=== PATIENT | female | born 1945 | race Caucasian/White ===

== ENCOUNTER 2017-11-16 08:38 | Day surgery (SDC) | payer MEDICARE, SELFPAY ==
--- NOTE | 2017-11-16 09:00 | NURSING ---
PT. BROUGHT INTO ROOM. SHORT STAY ADMISSION DONE. CONSENT FORM SIGNED. LIDOCAINE JELLY TO R. NARE. MANOMETRY CATHETER LUBRICATED WITH [place] JELLY AND PLACED INTO R. NARE TO [address]. TAPED WITH BLUE TAPE ONTO PT'S NOSE. PROCEDURE COMPLETED. CATHETER REMOVED. PT. TOLERATED PROCEDURE WELL. RN WALKED PT. OUT TO WAITING ROOM AND PT. WAS DISCHARGED HOME.
[2017-11-16 09:02] VITALS: BP 170/94; PULSE 83; RESP 18; O2SAT 93; BMI 29.7
== END 2017-11-16 14:15 | disposition home or self-care (01) ==
LOC: EN 08:39 → AC 08:41
PROVIDERS: Visit Provider Surgery
DX: K21.9 Gastro-esophageal reflux disease without esophagitis (principal)
CPT/HCPCS: 91010

== ENCOUNTER → 2018-06-19 12:20 | Outpatient (CLI) | payer MEDICARE, SELFPAY ==
--- NOTE | 2018-06-19 12:23 | US_ITS ---
STUDY: RENAL ULTRASOUND - COMPLETE REASON FOR EXAM: Female, 72 years old. Renal cancer TECHNIQUE: Ultrasound evaluation of the kidneys was performed with real-time and static raphael-scale imaging. COMPARISON: CT abdomen and pelvis dated 01/10/2017 FINDINGS: RIGHT KIDNEY: Normal location of the right kidney, which is normal in size. The right kidney measures 11 cm. There is a normal cortex of the right kidney. The renal cortex measures 1.2 cm. There are at least 2 right-sided renal cysts, largest measuring 1 x 0.8 x 1 cm. There appears to be a solid mass like lesion in the inferior pole the right kidney measuring 1.9 x 1.5 x 1.4 cm. There are no right renal calculi. There is no right hydronephrosis. DISTAL RIGHT URETER: There is non-visualization of the distal right ureter. There is no demonstrated right ureterovesical junction calculus. There is no demonstrated right ureteral jet. LEFT KIDNEY: Normal location of the left kidney, which is normal in size. The left kidney measures 11.2 cm. There is a normal cortex of the left kidney. The renal cortex measures 1.3 cm. There is no left renal mass or cyst. There are no left renal calculi. There is no left hydronephrosis. DISTAL LEFT URETER: There is non-visualization of the distal left ureter. There is no demonstrated left ureterovesical junction calculus. There is no demonstrated left ureteral jet. BLADDER: Not visualized US/Kidney and Bladder IMPRESSION: Again noted is a solid masslike lesion in the inferior aspect of the right kidney which appears grossly unchanged as compared to CT from 2017. Underlying malignancy cannot be excluded. Continued follow-up is recommended. Otherwise, stable right-sided renal cysts. Left kidney is within normal limits Electronically Signed: Sabino Hernandez DO at 8:47 EDT Tel , Service support ,
== END ==
PROVIDERS: Visit Provider Urology
DX: C64.9 Malignant neoplasm of unspecified kidney, except renal pelvis (principal)
CPT/HCPCS: 76770

== ENCOUNTER → 2020-07-06 12:49 | Outpatient (CLI) | payer MEDICARE, SELFPAY ==
[2020-07-01 10:59] VITALS: BMI 29.7
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
== END ==
PROVIDERS: Referring Provider Anesthesiology Pain Medicine; Visit Provider Anesthesiology Pain Medicine
DX: M25.559 Pain in unspecified hip (principal)
CPT/HCPCS: 73521

== ENCOUNTER 2020-11-25 14:17 | Outpatient (RCR) | payer MEDICARE, SELFPAY ==
[2020-07-01 10:59] VITALS: BMI 29.7
== END 2020-11-25 23:59 ==
LOC: IMMUN 14:17
PROVIDERS: Visit Provider Family Medicine
DX: Z23 Encounter for immunization (principal)
CPT/HCPCS: 0011A; 0012A; 91301

== ENCOUNTER 2021-01-13 22:33 | Emergency (ER) | payer MEDICARE, SELFPAY ==
[2020-07-01 10:59] VITALS: BMI 29.7
[2021-01-13 22:34] VITALS: BP 157/83; PULSE 82; RESP 17; TEMP 36.4; O2SAT 99; BMI 29.7
[2021-01-13 22:40] VITALS: BMI 29.7
[2021-01-13 22:45] LABS: Bedside Glucose 125 mg/dL (70-110)
--- NOTE | 2021-01-13 22:46 | ED.RN ---
When doctor in room, patient now states it is more of a pain in her fingers, hand and arm and states the face is numb. Then, states she has abdominal pain still but it is better than was when had the diverticulitis last week.
--- NOTE | 2021-01-13 22:51 | EKG12_ITS ---
Test Reason : NEURO Blood Pressure : / mmHG Vent. Rate : 066 BPM Atrial Rate : 066 BPM P-R Int : 160 ms QRS Dur : 100 ms QT Int : 406 ms P-R-T Axes : 066 -11 109 degrees QTc Int : 425 ms Normal sinus rhythm ST & T wave abnormality, consider lateral ischemia Abnormal ECG Confirmed by GWEN LAWLER, DAVID ([id number]), general expeditor MULU WILSON ([id number]) on 01/15/2021 11:52:17 AM Referred By: KATE Confirmed By:DAVID HIDALGO MD
--- NOTE | 2021-01-13 22:52 | CT_ITS ---
STUDY: CTA HEAD AND NECK WITH CONTRAST REASON FOR EXAM: Female, 75 years old. left arm tingling RADIATION DOSAGE (If Supplied By Facility): CTDIvol = ( 27.47 ) mGy, DLP = ( 1324.91 ) mGycm TECHNIQUE: CT angiography was performed with a multi-detector CT scanner. Data acquisition was obtained from the skull base through the vertex following intravenous administration of IV 100mL Isovue-370. MIP images were reconstructed from the axial data set. Post-processing of the angiographic images was performed, with multiplanar reformation and 3D reconstruction. Individualized dose optimization techniques were used for this CT. COMPARISON: No relevant priors. FINDINGS: Normal bilateral petrous carotid arteries. Normal right cavernous carotid artery with a normal supraclinoid bifurcation. Normal left cavernous carotid artery with a normal supraclinoid bifurcation. Normal right A1 segments of the anterior cerebral artery. Normal left A1 segments of the anterior cerebral artery. Normal intact anterior communicating artery (ACOM). Normal bilateral A2 segments of the anterior cerebral arteries. Normal right M1 and M2 segments of the middle cerebral arteries, with a normal M1 bifurcation. Normal left M1 and M2 segments of the middle cerebral arteries, with a normal M1 bifurcation. Normal right posterior communicating artery (PCOM). Normal left posterior communicating artery (PCOM). Normal bilateral vertebral arteries. Normal basilar artery with a normal basilar bifurcation. The visualized bilateral superior cerebellar (SCA) arteries are normal. Normal right P1, P2 and visualized P3 segments of the posterior cerebral artery. origin of the left posterior cerebral artery, which is a normal variant. There is no demonstrated aneurysm of the [place]. There is no demonstrated abnormality of the visualized brain. AORTIC ARCH: Normal visualized aortic arch. Normal origins of the brachiocephalic, left common carotid, and left subclavian arteries. RIGHT CAROTID ARTERIES: Normal right common carotid artery (CCA). Normal right common carotid bulb. Normal origin of the right internal carotid (ICA) artery without a hemodynamically significant stenosis. Normal visualized cervical portion of the right internal carotid artery. Normal origin of the right external carotid artery (ECA). LEFT CAROTID ARTERIES: Normal left common carotid artery (CCA). Normal left common carotid bulb. Normal origin of the left internal carotid (ICA) artery without a hemodynamically significant stenosis. Normal visualized cervical portion of the left internal carotid artery. Normal origin of the left external carotid artery (ECA). VERTEBRAL ARTERIES: Normal bilateral vertebral arteries. Degenerative changes of the lower cervical spine. CT/CTA Head AND Neck W/ Contrast IMPRESSION: Normal CTA Head and neck with contrast. Electronically Signed: Jacoby Ventura MD at 0:08 EDT , Service support ,
[2021-01-13 22:59] LABS: Absolute Lymphocyte Count 3.27 X10^3/uL (0.83-4.51); Absolute Neutrophil Count 3.2 X10^3/uL (2.0-7.7); Basophil# 0.07 X10^3/uL; Basophil% 0.9 % (0-1); Eosinophil# 0.28 X10^3/uL; Eosinophils% 3.7 % (0-5); Hematocrit 39.9 % (37-47); Hemoglobin 13.2 g/dL (12.0-15.0); Lymphocyte # 3.27 X10^3/ul (0.83-4.51); Lymphocyte % 43.2 % (19-41); Mean Corp Hgb Conc 33.1 g/dL (32-36); Mean Corpuscular Hgb 32.1 pg (27.0-32.0); Mean Corpuscular Volume 97.1 fL (81-99); Mean Platelet Vol. 9.3 fl (6.2-12.0); Monocyte# 0.78 X10^3/uL; Monocyte% 10.3 % (0-10); NRBC Flagged by Analyzer 0 % (0-5); Neutrophil # 3.16 X10^3/uL (2.7-7.7); Neutrophil % 41.8 % (47-70); Platelet Count 303 K/mm3 (150-450); RBC Distribution Width CV 12.9 % (11.6-14.6); RBC Distribution Width SD 46.2 fl (35.1-43.9); Red Blood Count 4.11 M/mm3 (4.2-5.4); White Blood Count 7.6 K/mm3 (4.4-11.0)
[2021-01-13 23:16] LABS: Anion Gap 2 (5-15); BUN 13 mg/dL (7-18); BUN/Creat Ratio 20.4 RATIO (10-20); Calcium,Total 9.8 mg/dL (8.5-10.1); Chloride 107 mmol/L (98-107); Creatinine, Serum 0.64 mg/dL (0.55-1.02); EST Glomerular Filtration Rate 96 mL/min (>60); Est Glom Filt Rate - Afr Amer 117 mL/min (>60); Estimated Creatinine Clearance 37.85 ml/min; Glucose 124 mg/dL (74-106); Potassium 3.3 mmol/L (3.5-5.1); Sodium Level 139 mmol/L (136-145)
[2021-01-13 23:17] VITALS: BP 133/68; PULSE 68; RESP 19; O2SAT 99
--- NOTE | 2021-01-13 23:19 | RAD_ITS ---
STUDY: X-RAY CHEST REASON FOR EXAM: Female, 75 years old. Shortness of breath. TECHNIQUE: AP portable chest. COMPARISON: None. FINDINGS: The lungs are clear and expanded. There is no demonstrated pleural abnormality. There is mild cardiac enlargement. Normal mediastinum and arnaldo. Normal visualized pulmonary arteries. Normal visualized aortic arch and descending thoracic aorta. Normal visualized thoracic spine. Normal visualized ribs, clavicles, and shoulders. There is no demonstrated abnormality of the visualized soft tissue structures of the upper abdomen. RAD/Chest 1 View (Portable) IMPRESSION: Mild cardiomegaly. Electronically Signed: Jacoby Ventura MD at 23:47 EDT , Service support ,
--- NOTE | 2021-01-13 23:41 | ED.VISSUMM ---
- ER Visit Summary Date of Service: 01/13/21 Chief Complaint: Left hand pain History of Present Illness: The patient is a 75 F presenting with left hand pain. Patient states her left middle finger start started to feel like it was cramping and painful. This started 3 hours prior to arrival. She states the pain then traveled to her the rest of her left arm. She denies chest pain or shortness of breath. Denies numbness or tingling. Denies weakness. Denies headache. Denies vision changes. She states she received her second Covid vaccine on December 23 in that arm. She recently finished a course of antibiotics for diverticulitis. Her abdominal pain has improved. She denies fever. Denies other complaints. Physical Examination: Vitals are stable. Patient is afebrile. Alert no acute distress. HEENT exam is unremarkable. Neck is supple. Lungs are clear and equal bilaterally. Heart is regular rate and rhythm. Abdomen is soft nontender nondistended. No guarding or rebound Extremities are unremarkable. Skin is warm and dry. No focal neurologic deficit. NIH 0 Remainder of exam is unremarkable. Emergency Department Course and Treatment: EKG is sinus rhythm rate of 66 with T wave inversion in lead I and aVL, similar to previous. CBC, chemistries unremarkable. Troponin is negative. Delta troponin is negative. Chest x-ray read by myself and radiology shows mild cardiomegaly. CT head shows normal noncontrast CT of the head. Normal CTA Head and neck with contrast. On reevaluation patient is feeling improved, she has mild pain in her left hand. Her arm pain has resolved. Left hand x-ray read by myself and radiology shows degenerative changes base of the first metacarpal, no fracture identified. She is able to ambulate with a steady gait. She is feeling improved on reevaluation. Advised to follow up with primary care physician. Advised return to the ED for worsening complaints. Disposition: Discharged home Impression: Left hand cramping This note was generated with [employer] dictation software. It may contain incorrect words, spelling, and punctuation that were not noted in review of the chart prior to signing ED Disposition - Plan for ED Patient: Disposition: Home or Assisted Living Instructions: What Is Arthritis?, ED Muscle Spasm Referrals: Josse Ngo Jr., MD [Primary Care Provider] -
[2021-01-13 23:49] VITALS: BP 148/67; PULSE 67; RESP 15; O2SAT 98
[2021-01-14 00:38] VITALS: BP 133/67; PULSE 76; RESP 16; O2SAT 97
[2021-01-14 01:32] VITALS: BP 144/69; PULSE 66; RESP 15; O2SAT 98
--- NOTE | 2021-01-14 02:13 | RAD_ITS ---
STUDY: X-RAY - LEFT HAND REASON FOR EXAM: Female, 75 years old. pain TECHNIQUE: 3 view(s) of the hand. COMPARISON: August 10, 2013. FINDINGS: Normal radiocarpal articulation. Normal distal radioulnar joint. Normal visualized carpal bones. Normal carpal articulations Degenerative changes base of the first metacarpal. Normal second through fifth carpometacarpal joints. Normal metacarpi. Normal metacarpophalangeal joint of the thumb. Normal interphalangeal joint of the thumb. Normal proximal and distal phalanges of the thumb. Normal metacarpophalangeal joints of the second through fifth fingers. Normal proximal and distal interphalangeal joints of the second through fifth fingers. Normal phalanges of the second through fifth fingers. The soft tissue structures are unremarkable. RAD/Hand Min 3 Views IMPRESSION: Degenerative changes base of the first metacarpal, no fracture identified. Electronically Signed: Jacoby Ventura MD at 3:44 EDT , Service support ,
[2021-01-14 02:54] VITALS: BP 136/72; PULSE 78; RESP 16; O2SAT 95
--- NOTE | 2021-01-14 03:45 | ED.DEP ---
ED Disposition - Plan for ED Patient: Instructions: What Is Arthritis?, ED Muscle Spasm Referrals: Josse Ngo Jr., MD [Primary Care Provider] -
[2021-01-14 03:57] VITALS: BP 135/81; PULSE 68; RESP 16; O2SAT 97
== END 2021-01-14 04:04 | disposition home or self-care (01) ==
LOC: ED 23:45
PROVIDERS: Emergency Provider Emergency Medicine
DX: R25.2 Cramp and spasm (principal); I51.7 Cardiomegaly; M79.602 Pain in left arm
CPT/HCPCS: 70496; 70498; 71045; 73130; 80048; 82962; 84484; 85025; 93005; 99285; Q9967; A4216

== ENCOUNTER 2021-09-16 13:51 | Emergency (ER) | payer MEDICARE, SELFPAY ==
[2021-09-16 13:52] VITALS: BP 171/78; PULSE 99; RESP 18; TEMP 36; O2SAT 98; BMI 28.3
--- NOTE | 2021-09-16 15:03 | ED.VIS.FEGU ---
HPI HPI - Female History of Present Illness Chief Complaint: Female C/O Narrative Narrative: Patient has remote history of rectocele and rectal prolapse repair along with pelvic floor prolapse repair. She states this was done at the [facility] in 1999. Over the last few days, she noticed a lump near her anus and became concerned that she had prolapse again. She had to have revision surgery after her initial surgery, and is concerned that things are moving around and that this lump has something to do with recurrence of her prolapse. She denies any fevers or chills. No nausea or vomiting. No bleeding rectally. She denies any diarrhea or problems with bowel movements. She is just concerned about this area where she felt a hard lump. Of note, she does state that she does have history of hemorrhoids, and said that previously some internal hemorrhoids may have prolapsed but her surgeon thinks that 20 years ago. [facility] Medical History Anxiety Arthritis Dilation of esophagus Dysphagia GERD (gastroesophageal reflux disease) History of colon polyps Irritable bowel syndrome with constipation s/p PH probe insertion Uterine prolapse Home Medications esomeprazole magnesium 20 mg capsule,delayed release 20 mg PO DAILY 07/01/20 [History Last Taken Unknown] aspirin 1 tablet PO DAILY PRN 01/13/21 [History Last Taken Unknown] hydrocortisone [Anusol-HC] 1 applic PA DAILY PRN #30 g 09/16/21 [Rx Last Taken Unknown] Allergy/AdvReac Type Severity Reaction Status Date / Time Penicillins Allergy Hives Verified 09/16/21 13:54 codeine AdvReac Other Verified 09/16/21 13:54 Family History Mother Diabetes Brother Heart disease Hypertension Sister CAD (coronary artery disease) Diabetes Surgical History History of appendectomy History of bladder suspension procedure History of esophagogastroduodenoscopy (~10/17/17) History of hysterectomy History of nasal surgery History of wisdom tooth extraction Social History Smoking Status: Never smoker alcohol intake: current alcohol intake frequency: a few times a month ROS ROS ED ROS Narrative Constitutional: No fever, no chills. HEENT: No sore throat. No neck pain. No loss of vision. No rhinorrhea. Cardiovascular: No chest pain. No palpitations. No pedal edema. Respiratory: No cough, no shortness of breath. Abdominal: No abdominal pain. No nausea. No vomiting. Genitourinary: No dysuria. No hematuria. Hard lump near rectum. Musculoskeletal: No myalgias. No arthralgias. Neurologic: No headaches. No dizziness. No lightheadedness. Skin: No rash. No change in color. Psychiatric: No depression. No anxiety. EXAM Physical Exam Narrative Exam Narrative: Afebrile. Vital signs noted. HEENT: Normocephalic. Atraumatic. PERRL, EOMI. Neck soft and supple. No point tenderness or step off. Cardiovascular: Regular rate and rhythm. No murmurs, rubs, or gallops appreciated. Respiratory: No tachypnea. Lungs clear to auscultation bilaterally. Gastrointestinal: Abdomen soft, nontender, with normoactive bowel sounds. No rebound or guarding. Chaperoned rectal examination reveals external hemorrhoid without active bleeding. Is partially thrombosed, but not fully. No erythema. It is located in the 6 o'clock position more towards the perineum. No fluctuance of perineum. Neurological: Awake. Alert. Nonfocal, nonlateralizing. Skin: No rash. Normal color. No pallor. Musculoskeletal: No pedal edema. Full range of motion extremities. Const Vital Signs: 09/16/21 13:52 Temperature 96.8 F L Temperature Source Temporal Pulse Rate 99 Respiratory Rate 18 Blood Pressure 171/78 H Blood Pressure Mean 109 Pulse Ox 98 Oxygen Delivery Method Room Air MDM MDM MDM Narrative Medical decision making narrative: Patient states that she has not really having pain when she sits. She denies any fevers or chills. She was reassured. I do think this is a partially thrombosed external hemorrhoid. She will be given a prescription for Anusol HC ointment and she was referred to the general surgeon on-call, Dr. Truong. I feel she can be discharged safely home with follow-up. Return instructions were reviewed. Disposition is discharged home in stable condition. Discharge Plan Triage Chief Complaint: Female C/O ED Provider: Gunner Lovell Dx/Rx/DC Orders Clinical Impression: External hemorrhoid Instructions: Treating Hemorrhoids: Self-Care, ED Hemorrhoids Prescriptions: New hydrocortisone [Anusol-HC] 2.5 % cream with perineal applicator 1 applic PA DAILY PRN (Reason: hemorrhoids) Qty: 30 RF: 0 No Action esomeprazole magnesium [Nexium] 20 mg capsule,delayed release(DR/EC) 20 mg PO DAILY RF: 0 aspirin 81 MG tablet,chewable 1 tablet PO DAILY PRN RF: 0 Primary Care Provider: Care Physician,No Primary Referrals: Care Physician,No Primary [Primary Care Provider] -
--- NOTE | 2021-09-16 15:04 | ED.RN ---
pt here for concern of rectocele. upon exam with dr. gallagher, only external hemorrhoids.
== END 2021-09-16 15:28 | disposition home or self-care (01) ==
LOC: ED 14:51
PROVIDERS: Emergency Provider Emergency Medicine
DX: K64.5 Perianal venous thrombosis (principal); F41.9 Anxiety disorder, unspecified; K21.9 Gastro-esophageal reflux disease without esophagitis; K58.9 Irritable bowel syndrome, unspecified; M19.90 Unspecified osteoarthritis, unspecified site; Z87.19 Personal history of other diseases of the digestive system
CPT/HCPCS: 99282

== ENCOUNTER 2021-10-08 21:33 | Emergency (ER) | payer MEDICARE, SELFPAY ==
[2021-10-08 21:34] VITALS: BP 157/110; PULSE 86; RESP 15; TEMP 36.4; O2SAT 99; BMI 29.6
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
[2021-10-08 22:43] VITALS: BP 155/74; PULSE 77; RESP 17; O2SAT 97
== END 2021-10-08 22:49 | disposition home or self-care (01) ==
PROVIDERS: Emergency Provider Emergency Medicine; Visit Provider Emergency Medicine
DX: Z71.1 Person with feared health complaint in whom no diagnosis is made (principal); M19.90 Unspecified osteoarthritis, unspecified site; K21.9 Gastro-esophageal reflux disease without esophagitis; K58.1 Irritable bowel syndrome with constipation; Z86.010 Personal history of colon polyps; Z79.82 Long term (current) use of aspirin
CPT/HCPCS: 99282

== ENCOUNTER 2023-02-09 12:22 | Emergency (ER) | payer MEDICARE, SELFPAY ==
[2023-02-09 12:24] VITALS: BP 136/74; PULSE 77; RESP 18; TEMP 36.1; O2SAT 93; BMI 31.7
--- NOTE | 2023-02-09 12:49 | RAD_ITS ---
STUDY: X-RAY - RIGHT ELBOW REASON FOR EXAM: Female, 77 years old. Injury/Pain TECHNIQUE: 3 view(s) of the elbow. COMPARISON: None. FINDINGS: Mildly depressed fracture of the radial head. Normal radiocapitellar and ulnotrochlear articulations. Joint effusion. RAD/Elbow min 3 Views IMPRESSION: Joint effusion. Mildly depressed fracture of the radial head. Electronically Signed: Wilbert Dalal MD at 13:47 EDT ,
--- NOTE | 2023-02-09 12:49 | RAD_ITS ---
STUDY: X-RAY - PELVIS AND RIGHT HIP REASON FOR EXAM: Female, 77 years old. Right hip pain following a fall. TECHNIQUE: 3 views of the pelvis and hip. COMPARISON: Comparison is made with prior examination July 06, 2020. FINDINGS: There is a non-specific bowel gas pattern. There are atherosclerotic vascular calcifications of the pelvic arteries. Normal bilateral iliac wings, sacroiliac joints and visualized sacrum. Normal bilateral superior and inferior pubic rami. Normal pubic symphysis. Normal bilateral ischial tuberosities. Widening of the right femoral head suggestive of a femoral acetabular impingement. Degenerative spur formation along the femoral head. Normal acetabulum. There is moderate articular joint space narrowing of the hip. RAD/HIP, UNI W/ Pelvis 2-3 Views IMPRESSION: Degenerative changes. No fracture is seen. Electronically Signed: Wilbert Dalal MD at 13:48 EDT ,
--- NOTE | 2023-02-09 13:24 | ED.VIS.FALL ---
HPI HPI - Fall History of Present Illness Chief Complaint: Fall Informant: patient Occured/Mechanism Occurred: Today Mechanism/Context: Yes same level fall Pain/Injury Pain Location: pelvis, upper extremity (Right elbow) and lower extremity (Right hip) Quality of Pain: Aching Worsened by: Movement Relieved by: Rest Associated Symptoms Associated Symptoms: Negative for Parasthesias, Weakness, Loss of function, Inability to ambulate, Loss of consciousness or Amnesia Narrative Narrative: Patient presents after a fall that occurred today. Patient states she was walking out of her screened in porch when she fell and landed on her right side. Patient hit her elbow and right hip. Patient denies any head injury or loss of consciousness. Patient describes her pain as aching. Patient states her pain is worse in her right elbow. Patient states it is worse with movement. Patient states it is better with rest. Patient denies any paresthesias or weakness. Patient denies any other injuries. Patient states she was able to ambulate after the fall. [facility] Medical History Anxiety Arthritis Dilation of esophagus Dysphagia GERD (gastroesophageal reflux disease) Hemorrhoids History of colon polyps Irritable bowel syndrome with constipation s/p PH probe insertion Uterine prolapse Home Medications esomeprazole magnesium 20 mg capsule,delayed release (Nexium) 20 mg PO DAILY 07/01/20 [History Last Taken Unknown] aspirin 81 mg chewable tablet 1 tablet PO DAILY PRN Check with primary doctor 01/13/21 [History Last Taken Unknown] hydrocortisone 2.5 % topical cream with perineal applicator (Anusol-HC) 1 applic MT DAILY PRN hemorrhoids #30 grams 09/16/21 [Rx Last Taken Unknown] hydrocodone-acetaminophen 5-325mg 5mg-325mg 1 tab PO Q6H PRN PRN Pain 3 days #10 TABLETS 02/09/23 [Rx Last Taken Unknown] Allergy/AdvReac Type Severity Reaction Status Date / Time Penicillins Allergy Hives Verified 10/08/21 21:34 codeine AdvReac Other Verified 10/08/21 21:34 Family History Mother Diabetes Brother Heart disease Hypertension Sister CAD (coronary artery disease) Diabetes Surgical History History of appendectomy History of bladder suspension procedure History of esophagogastroduodenoscopy (~10/17/17) History of hysterectomy History of nasal surgery History of wisdom tooth extraction Social History Smoking Status: Never smoker alcohol intake: current alcohol intake frequency: a few times a month ROS ROS ED Constitutional Constitutional ED: Denies chills or fever(s) Eyes Eyes: Denies blurry vision or change in vision ENT ENT ED: Denies rhinorrhea or sore throat Cardiovascular Cardiovascular: Denies chest pain or palpitations Respiratory/Chest Respiratory/Chest: Denies cough or dyspnea Gastrointestinal Gastrointestinal: Denies nausea or vomiting Genitourinary Genitourinary ED: Denies dysuria or hematuria Musculoskeletal Musculoskeletal: Reports back pain; Denies neck pain Integumentary Denies abscess or rash Neurologic Neurologic: Reports headache(s); Denies weakness Allergic/Immunologic Allergic/Immunologic ED: Denies mouth swelling or urticaria EXAM Physical Exam Const Vital Signs: 02/09/23 12:24 Temperature 97.0 F L Temperature Source Temporal Pulse Rate 77 Respiratory Rate 18 Blood Pressure 136/74 H Blood Pressure Mean 94 Pulse Ox 93 Oxygen Delivery Method Room Air Positive well nourished and well developed General Appearance ED: well developed and NAD HEENT Reports normocephalic atraumatic Neck full ROM and supple Extremity Extremity Narrative: There is tenderness over the posterior aspect of the right elbow. There is a very superficial abrasion over the olecranon process. There is no obvious deformity noted. Range of motion was limited in all motions of the right elbow secondary to pain. Radial pulses are equal bilaterally. Sensation was intact to light touch in the radial, median, and ulnar areas. Strength is 5/5 in the radial, median, and ulnar areas. There is also mild tenderness over the right hip over the anterior superior iliac spine. There is no obvious deformity noted. There is good range of motion of the right hip. Pedal pulses are equal bilaterally. Sensation was intact to light touch bilaterally in the lower extremities. Strength is 5/5 in the lower extremities. Neuro oriented x3, CN's II-XII intact bilaterally, moves all extremities, no focal motor deficits and no sensory deficits noted [place] Coma Scale: document GCS findings Spontaneous Obeys Commands Oriented 15 Sensorium / Orientation: alert Motor Exam: strength 5/5 throughout Psych mental status grossly normal MDM MDM MDM Narrative Medical decision making narrative: Differential diagnosis includes elbow fracture, dislocation, contusion, right hip contusion, pelvic fracture, and right hip fracture. X-rays of the right elbow will be obtained to assess for fracture. X-rays of the right hip and pelvis will be obtained to assess for fracture. Radiography Diagnostic Testing: Clinical Impression(s) from Imaging Studies Elbow X-Ray 02/09/23 12:49 IMPRESSION: Joint effusion. Mildly depressed fracture of the radial head. Electronically Signed: Wilbert Dalal MD at 13:47 EDT , Hip/Pelvis X-Ray 02/09/23 12:49 IMPRESSION: Degenerative changes. No fracture is seen. Electronically Signed: Wilbert Dalal MD at 13:48 EDT , X-rays of the right elbow were obtained. There are 3 views. On my independent interpretation, there is a fracture of the radial head. There is a joint effusion noted. Radiologist also interpreted the x-rays and agrees. X-rays of the right hip were obtained. There are 3 views. On my independent interpretation, there are degenerative changes. There is no acute fracture noted. Radiologist also interpreted the x-rays and agrees. Treatment and Re-Evaluation Narrative: Given herPatient was advised of her findings. Patient was given a sling. Patient was instructed to ice and elevate the right elbow. Scription for a short course of [place]. Patient was instructed to follow-up with her primary care physician in 5 to 7 days. Patient understood and was agreeable with the plan. All questions were answered. Discharge Plan Triage Chief Complaint: Fall Other Complaint: Upper Extremity Injury ED Provider: Austin Mckeon Dx/Rx/DC Orders Clinical Impression: Fracture of head of right radius, Contusion of right hip Instructions: ED Elbow Fracture, ED Hip Contusion Prescriptions: New hydrocodone-acetaminophen [hydrocodone-acetaminophen] 5-325 mg tablet 1 tab PO Q6H PRN PRN (Reason: Pain) 3 Days Qty: 10 0RF No Action esomeprazole magnesium [Nexium] 20 mg capsule,delayed release(DR/EC) 20 mg PO DAILY aspirin 81 MG tablet,chewable 1 tablet PO DAILY PRN hydrocortisone [Anusol-HC] 2.5 % cream with perineal applicator 1 applic MT DAILY PRN (Reason: hemorrhoids) Qty: 30 0RF Primary Care Provider: Vinicius Harris Referrals: Vinicius Harris MD [Primary Care Provider] - 5-7 Days Juno Montano MD [Med Staff - Active Staff] - 5-7 Days Disposition Disposition: Home, Self Care
== END 2023-02-09 15:20 | disposition home or self-care (01) ==
PROVIDERS: Emergency Provider Emergency Medicine; PCP Family Medicine; Visit Provider Emergency Medicine
DX: S52.301A Unspecified fracture of shaft of right radius, initial encounter for closed fracture (principal); W18.30XA Fall on same level, unspecified, initial encounter; S70.01XA Contusion of right hip, initial encounter
CPT/HCPCS: 73080; 73502; 99282

== ENCOUNTER 2024-07-11 11:46 | Observation (INO) | payer MEDICARE, SELFPAY ==
[2024-07-11 11:47] VITALS: BP 134/70; PULSE 75; RESP 20; TEMP 36.6; O2SAT 100
--- NOTE | 2024-07-11 12:43 | RAD_ITS ---
STUDY: X-RAY CHEST REASON FOR EXAM: Female, 79 years old. Lightheaded . Headaches. TECHNIQUE: PA and lateral views of the chest. COMPARISON: Comparison is made with prior study January 13, 2021. FINDINGS: EKG electrodes are seen. Hyperinflation. Stable mild increased markings at the left lung base suggestive of a scarring. There is no demonstrated pleural abnormality. There is mild cardiac enlargement. Normal mediastinum and arnaldo. Normal visualized pulmonary arteries. There is atherosclerotic tortuosity of the aortic arch and descending thoracic aorta. There are degenerative changes of the visualized thoracic spine. Normal visualized ribs, clavicles, and shoulders. There is no demonstrated abnormality of the visualized soft tissue structures of the upper abdomen. RAD/Chest PA and Lateral IMPRESSION: Findings suggestive of a stable mild scarring at the left lung base. Cardiomegaly. Electronically Signed: Wilbert Dalal MD at 13:57 EDT ,
--- NOTE | 2024-07-11 12:43 | CT_ITS ---
STUDY: CT BRAIN WITHOUT CONTRAST REASON FOR EXAM: Female, 79 years old. Lightheaded, headache RADIATION DOSAGE (If Supplied By Facility): CTDIvol = ( 44.99 ) mGy, DLP = ( 745.49 ) mGycm TECHNIQUE: Transaxial CT imaging of the brain was performed without administration of intravenous contrast material. Individualized dose optimization techniques were used for this CT. COMPARISON: No relevant priors. FINDINGS: Normal soft tissue structures. Normal calvarium. There is mild cerebral atrophy with widening of the extra-axial spaces and ventricular dilatation. Normal white matter tracts of the cerebral hemispheres. Normal basal ganglia and thalami. Normal brainstem. There is mild cerebellar atrophy. There is no intracranial hemorrhage. There are no findings of an acute ischemic infarction. Atherosclerotic calcification of the cavernous portions of the internal carotid arteries bilaterally. Normal visualized paranasal sinuses. CT/Brain/Head without Contrast IMPRESSION: Chronic involutional changes of the brain. Electronically Signed: Wilbert Dalal MD at 13:55 EDT ,
--- NOTE | 2024-07-11 12:43 | EKG12_ITS ---
Test Reason : DIZZINESS Blood Pressure : / mmHG Vent. Rate : 065 BPM Atrial Rate : 065 BPM P-R Int : 180 ms QRS Dur : 094 ms QT Int : 396 ms P-R-T Axes : 068 -08 090 degrees QTc Int : 411 ms Poor data quality, interpretation may be adversely affected Normal sinus rhythm ST & T wave abnormality, consider lateral ischemia Abnormal ECG Confirmed by ALEJANDRO LAWLER, RAJESH ([id number]), desk editor JENNIFER VARGAS ([id number]) on 07/12/2024 2:14:56 PM Referred By: Marcus Tejada Confirmed By:RAJESH ALLEN MD
[2024-07-11 13:10] LABS: Absolute Lymphocyte Count 1.81 X10^3/uL (0.83-4.51); Absolute Neutrophil Count 5.2 X10^3/uL (2.0-7.7); Basophil# 0.05 X10^3/uL; Basophil% 0.6 % (0-1); Eosinophil# 0.14 X10^3/uL; Eosinophils% 1.8 % (0-5); Hematocrit 40.7 % (37-47); Hemoglobin 13.3 g/dL (12.0-15.0); Lymphocyte # 1.81 X10^3/ul (0.83-4.51); Lymphocyte % 23.2 % (19-41); Mean Corp Hgb Conc 32.7 g/dL (32-36); Mean Corpuscular Volume 98.1 fL (81-99); Mean Platelet Vol. 9.5 fl (6.2-12.0); Monocyte% 7.7 % (0-10); NRBC Flagged by Analyzer 0 % (0-5); Neutrophil # 5.16 X10^3/uL (2.7-7.7); Neutrophil % 66.3 % (47-70); Platelet Count 317 K/mm3 (150-450); RBC Distribution Width CV 13.2 % (11.6-14.6); RBC Distribution Width SD 47.4 fl (35.1-43.9); Red Blood Count 4.15 M/mm3 (4.2-5.4); White Blood Count 7.8 K/mm3 (4.4-11.0)
[2024-07-11 13:38] LABS: ALB/GLOB Ratio 1.3 RATIO (0.9-2.4); AST(SGOT) 14 U/L (15-37); Alanine Aminotransfer ALT/SGPT 20 U/L (13-56); Albumin, Serum 3.9 g/dL (3.2-5.0); Alkaline Phosphatase 68 U/L (45-117); Anion Gap 7 (5-15); BUN 18 mg/dL (7-18); BUN/Creat Ratio 20.8 RATIO (10-20); Calcium,Total 10.4 mg/dL (8.5-10.1); Chloride 104 mmol/L (98-107); Creatinine, Serum 0.86 mg/dL (0.55-1.02); EST Glomerular Filtration Rate 67 mL/min (>60); Est Glom Filt Rate - Afr Amer 81 mL/min (>60); Globulin 3.1 g/dL (2.2-4.2); Glucose 103 mg/dL (74-106); Potassium 4.6 mmol/L (3.5-5.1); Sodium Level 135 mmol/L (136-145); Troponin-I HS 4 pg/mL (3.0-54.0)
[2024-07-11 14:03] LABS: Bacteria 0 SEEN /hpf (None Seen); Mucous, Urine 0 SEEN /hpf (<or=2+); Red Blood Cells-Urine 0 SEEN /hpf (0-5); Squamous Epithelial Cells - UA 0 SEEN /hpf (5-10); White Blood Cells 0 SEEN /hpf (0-5)
[2024-07-11 14:14] LABS: Color, Urine Yellow (Yellow); Glucose, Dipstick 1000 mg/dl (Normal); Leukocyte Esterase-Dipstick Negative /ul (Negative); Nitrite-Dipstick Negative (Negative); Occult Blood-Urine Negative /ul (Negative); Protein-Dipstick 30 mg/dl (Negative); Urine Bilirubin Dipstick Negative (Negative); Urine Clarity Clear (Clear); Urine Urobilinogen Normal (Normal)
[2024-07-11 14:20] LABS: Ketone-Dipstick 150 mg/dl (Negative)
[2024-07-11 15:00] VITALS: BP 130/66; PULSE 70; RESP 20; TEMP 36.4; O2SAT 99
[2024-07-11 15:46] VITALS: BP 136/71; PULSE 64; RESP 18; O2SAT 99
--- NOTE | 2024-07-11 15:46 | NURSING ---
PCU OBS HERNANDEZ HEADACHE, DIZZINESS
--- NOTE | 2024-07-11 15:48 | HP.PCM.HOS_ITS ---
HPI - General General Date of Admission: 07/11/24 Date of Service: 07/11/24 Chief Complaint: Headache, lightheaded, vision off HPI Narrative HARPREET SYKES, is a 79 F with a history of migraines, CHF, GERD, irregular heartbeat who presented [facility] ED 07/11/2024 with the myriad of symptoms. She reports that she has been having problems for the past 2 years since she started Entresto and intermittently will get what she said her migraines and endorses that her Optho DrBarbara Diagnosed her as such. She gets some blurring of her vision and then a whole headache will feel lightheaded. These usually last roughly 25 minutes and then will resolve however today she said that her eyes became blurry and she had a headache and lightheaded but then could not remember what happened after, said she was trying to express something to him but he could not understand what she was saying and she did not seem to be able to communicate effectively though was not slurring speech. This lasted for at least an hour which is much longer than usual symptoms. She does report intermittent lightheaded episodes and said when she sits down and rests her head down they will resolve. Has intermittent problems with her bowels and reports IBS, no chest pain or shortness of breath, feels she gets hot and cold at times but no measured fever. No unilateral numbness, weakness, tingling. No changes in bladder. No swelling in extremities. CT in ED and lab workup fairly benign aside from glucosuria and ketones in her urine but no gap or elevated glucose. [facility] Medical History Non-smoker Irregular heart beat Congestive heart failure (CHF) Migraines Hemorrhoids s/p PH probe insertion Dilation of esophagus Uterine prolapse Arthritis Anxiety Irritable bowel syndrome with constipation History of colon polyps Dysphagia GERD (gastroesophageal reflux disease) Home Medications ?Medication ?Instructions ?Recorded ?Last Taken ?Type esomeprazole magnesium 20 mg 20 mg PO DAILY 07/01/20 07/11/24 History capsule,delayed release (Nexium) carvedilol 6.25 mg tablet 6.25 mg PO BID 02/14/23 07/11/24 History empagliflozin 10 mg tablet 10 mg PO DAILY 02/14/23 07/11/24 History (Jardiance) sacubitril 49 mg-valsartan 51 mg 1 tab PO BID 02/14/23 07/11/24 History tablet (Entresto) spironolactone 25 mg tablet 25 mg PO DAILY 02/14/23 07/11/24 History Allergy/AdvReac Type Severity Reaction Status Date / Time Penicillins Allergy Hives Verified 07/11/24 11:49 codeine AdvReac Other Verified 07/11/24 11:49 Family History Mother Diabetes Brother Heart disease Hypertension Sister CAD (coronary artery disease) Diabetes Surgical History History of esophagogastroduodenoscopy (~10/17/17) History of nasal surgery History of wisdom tooth extraction History of appendectomy History of bladder suspension procedure History of hysterectomy Social History Smoking Status: Never smoker alcohol intake: current alcohol intake frequency: a few times a month ROS ROS Narrative General: Feels intermittent hot and cold HENT: Gets headaches associated with her blurring in vision, denies stuffy nose, occasionally will get a sore throat EYES: Has these episodes where she has blurring in her vision Resp: Denies cough, not having shortness of breath at this time Cardiac: Denies chest pain GI: Denies abdominal pain, denies changes in bowel, not presently nauseous : Denies changes in urination Extremity: Denies current pitting edema MSK: Reports some chronic right thumb problems and pain Neuro: Occasionally will get tingling in her toes, also had earlier episode today that she forgets and has been reports she had difficulty expressing anything Heme: Denies any bleeding or bruising Skin: Denies rashes Psychiatric: No complaints voiced Vital Signs Vital Signs Vital Signs: 07/11/24 11:47 07/11/24 15:00 07/11/24 15:46 Temperature 97.8 F 97.5 F L Temperature Source Temporal Pulse Rate 75 70 64 Respiratory Rate 20 H 20 H 18 Blood Pressure 134/70 H 130/66 H 136/71 H Blood Pressure Mean 91 87 92 Pulse Ox 100 99 99 Oxygen Delivery Method Room Air Results Lab / Micro Data 07/11/24 12:18 07/11/24 12:18 Labs: Laboratory Results - last 24 hr 07/11/24 12:18: WBC 7.8, RBC 4.15 L, Hgb 13.3, Hct 40.7, MCV 98.1, MCH 32.0, MCHC 32.7, RDW Std Deviation 47.4 H, RDW Coeff of Amilcar 13.2, Plt Count 317, MPV 9.5, Immature Gran % (Auto) 0.400, Neut % (Auto) 66.3, Lymph % (Auto) 23.2, [place] % (Auto) 7.7, Eos % (Auto) 1.8, Baso % (Auto) 0.6, Absolute Neuts (auto) 5.2, Absolute Lymphs (auto) 1.81, Nucleated RBC % 0, Sodium 135 L, Potassium 4.6, Chloride 104, Carbon Dioxide 24.0, Anion Gap 7, BUN 18, Creatinine 0.86, Est GFR (MDRD) Af Amer 81, Est GFR (MDRD) Non-Af 67, BUN/Creatinine Ratio 20.8 H, Glucose 103, Calcium 10.4 H, Total Bilirubin 0.90, AST 14 L, ALT 20, Alkaline Phosphatase 68, Troponin I High Sens 4, Total Protein 7.0, Albumin 3.9, Globulin 3.1, Albumin/Globulin Ratio 1.3 07/11/24 13:58: Urine Color Yellow, Urine Clarity Clear, Urine pH 8.0, Ur Specific [place] 1.010, Urine Protein 30 H, Urine Glucose (UA) 1000 H, Urine Ketones 150 A*, Urine Occult Blood Negative, Urine Nitrite Negative, Urine Bilirubin Negative, Urine Urobilinogen Normal, Ur Leukocyte Esterase Negative, Urine RBC 0 SEEN, Urine WBC 0 SEEN, Ur Squamous Epith Cells 0 SEEN, Urine Bacteria 0 SEEN, Urine Mucus 0 SEEN Imaging Radiology Impression Brain CT 07/11/24 12:43 IMPRESSION: Chronic involutional changes of the brain. Electronically Signed: Wilbert Dalal MD at 13:55 EDT , Chest X-Ray 07/11/24 12:43 IMPRESSION: Findings suggestive of a stable mild scarring at the left lung base. Cardiomegaly. Electronically Signed: Wilbert Dalal MD at 13:57 EDT , Assessment & Plan Assessment/Plan (1) Headache: PLAN: Plan # Changes in vision with lightheaded/dizzy feeling and headache today accompanied by amnesia and expressive aphasia -Admit to tele -unclear etiology, given patient had the episode earlier for expressive aphasia and some amnesia different from usual feel CVA workup is reasonable -CT head with no acute process -CTA head and neck ordered -MRI ordered -NIH q4hr -asa, statin -Echo w/ bubble study -PT/OT/Speech eval -Teleneuro consult [] -Hold BP medications to allow for permissive hypertension for 24 hours unless SBP greater than 220 or DBP greater than 120 or until stroke is ruled out # Intermittent lightheaded feeling -Intermittently over the past couple of years but more recently has been associated with the symptoms -Query if she could be transiently hypotensive or be associated with an irregular heartbeat -Monitoring on telemetry -Will get orthostats -Echocardiogram as above -Will also give gentle IV fluids # History of chronic heart failure with unclear subtype -Patient unable to tell me more about this -Does not appear volume overloaded -Daily weights, I's and O's -Judicious IVF -Will continue blood pressure medications unless patient becomes hypotensive or orthostats positive #GERD -Continue PPI #DVT ppx: Lovenox subcu Mary Olguin MD Charges/Coding Visit Charges Inpatient E&M: 45952 Init Hosp L2
--- NOTE | 2024-07-11 15:54 | EX.ED.DYSGE1 ---
HPI History of Present Illness Chief Complaint: Headache Narrative Narrative: Patient is a 79-year-old female with past medical history of CHF, migraine headaches, anxiety, IBS, GERD who presented to the emergency department the chief complaint of dizziness and not feeling her normal self. States that she has been fighting dizziness on and off now for a significant time. States that today she felt like her dizziness was worse which prompted her here for evaluation management. States that she recently was evaluated by her physician and had her left ear cleaned out from impacted earwax that was bothering her. States that she still is having some left ear discomfort today. States that she recently saw her director of annual giving for some left eye vision changes and they felt that she may have complex migraine headaches. According to her significant other at bedside he stated that she had a period today that she was not acting her normal self and seemed unresponsive [facility] Medical History Non-smoker Irregular heart beat Congestive heart failure (CHF) Migraines Hemorrhoids s/p PH probe insertion Dilation of esophagus Uterine prolapse Arthritis Anxiety Irritable bowel syndrome with constipation History of colon polyps Dysphagia GERD (gastroesophageal reflux disease) Home Medications ?Medication ?Instructions ?Recorded ?Last Taken ?Type esomeprazole magnesium 20 mg 20 mg PO DAILY 07/01/20 07/11/24 History capsule,delayed release (Nexium) carvedilol 6.25 mg tablet 6.25 mg PO BID 02/14/23 07/11/24 History empagliflozin 10 mg tablet 10 mg PO DAILY 02/14/23 07/11/24 History (Jardiance) sacubitril 49 mg-valsartan 51 mg 1 tab PO BID 02/14/23 07/11/24 History tablet (Entresto) spironolactone 25 mg tablet 25 mg PO DAILY 02/14/23 07/11/24 History Allergy/AdvReac Type Severity Reaction Status Date / Time Penicillins Allergy Hives Verified 07/11/24 11:49 codeine AdvReac Other Verified 07/11/24 11:49 Family History Mother Diabetes Brother Heart disease Hypertension Sister CAD (coronary artery disease) Diabetes Surgical History History of esophagogastroduodenoscopy (~10/17/17) History of nasal surgery History of wisdom tooth extraction History of appendectomy History of bladder suspension procedure History of hysterectomy Social History Smoking Status: Never smoker alcohol intake: current alcohol intake frequency: a few times a month ROS ROS ED ROS Narrative Constitutional: Complains of headache as noted above and dizziness denies lightheadedness, fevers, chills Eyes: Complains of changes in vision of her left eye denies any double vision Cardiovascular: Denies chest pain or palpitations Respiratory: Denies coughing wheezing shortness of breath Abdomen: Denies abdominal pain nausea vomit diarrhea : Denies any urinary symptoms Neurological: Denies numbness, weakness, tingling Musculoskeletal: Denies back pain Skin: Denies rashes or lesions EXAM Physical Exam Narrative Exam Narrative: General: Patient lying in bed rest comfortably did not appear to be acute distress Head: Atraumatic normocephalic Eyes: PERRL bilateral, EOMI bilateral, no conjunctival injection noted Neck: Soft, supple, trach midline Cardiovascular: Regular rhythm no murmurs gallops rubs noted Respiratory: Clear to auscultation bilaterally no rales rhonchi or wheeze noted Abdomen: Soft, nondistended, nontender to palpation, bowel sounds present x 4 Extremities: +4/5 strength noted in the bilateral upper and lower extremities, no pedal edema no exam, radial pulses +2/4 in the bilateral per extremities Neurological: Patient following commands knew that she was at [facility] year is 2023. NIH of 0 GCS of 15. Patient completed finger-nose and [id number] test bilaterally, difficulty Skin: Warm, dry, intact Const Vital Signs: 07/11/24 11:47 07/11/24 15:00 07/11/24 15:46 Temperature 97.8 F 97.5 F L Temperature Source Temporal Pulse Rate 75 70 64 Respiratory Rate 20 H 20 H 18 Blood Pressure 134/70 H 130/66 H 136/71 H Blood Pressure Mean 91 87 92 Pulse Ox 100 99 99 Oxygen Delivery Method Room Air MDM MDM MDM Narrative Medical decision making narrative: Patient is a 79-year-old female who presented to the emergency department chief complaint of dizziness, headache and not feeling her normal self. Patient will have a workup performed here on the differential diagnose includes but not limited to vertigo versus complex migraine versus posterior circulation stroke. Patient is not a tenecteplase candidate as her symptoms have improved here in the emergency department. Patient CBC reviewed and showed no evidence leukocytosis white blood count normal at 7.8, hemoglobin is 13.3, platelet count normal at 317. Patient sodium normal 135, potassium normal at 4.6, creatinine normal at 0.86. Patient's AST and ALT were 14 and 20 respectively, troponin normal at 4. Patient's EKG reviewed which was independently interpreted by myself which showed sinus rhythm with a rate of [address] changes noted. Patient's urinalysis reviewed and was significant for ketones no evidence of infection. Patient's chest x-ray was reviewed by myself and by radiology which showed findings suggestive stable mild scarring at the lung bases cardiomegaly. Patient CT head and brain without contrast showed chronic involutional changes of the brain. At this point time do believe the patient will warrant admission to the hospitalist service for further evaluation management of her dizziness and generalized not feeling well. Discussed case with hospitalist Dr. Olguin who accept patient for admission. Patient was notified and agreeable this plan all question concerns answered Lab Data Labs: Laboratory Results - last 24 hr 07/11/24 07/11/24 12:18 13:58 WBC 7.8 RBC 4.15 L Hgb 13.3 Hct 40.7 MCV 98.1 MCH 32.0 MCHC 32.7 RDW Std Deviation 47.4 H RDW Coeff of Amilcar 13.2 Plt Count 317 MPV 9.5 Immature Gran % (Auto) 0.400 Neut % (Auto) 66.3 Lymph % (Auto) 23.2 Hardy % (Auto) 7.7 Eos % (Auto) 1.8 Baso % (Auto) 0.6 Absolute Neuts (auto) 5.2 Absolute Lymphs (auto) 1.81 Nucleated RBC % 0 Sodium 135 L Potassium 4.6 Chloride 104 Carbon Dioxide 24.0 Anion Gap 7 BUN 18 Creatinine 0.86 Est GFR (MDRD) Af Amer 81 Est GFR (MDRD) Non-Af 67 BUN/Creatinine Ratio 20.8 H Glucose 103 Calcium 10.4 H Total Bilirubin 0.90 AST 14 L ALT 20 Alkaline Phosphatase 68 Troponin I High Sens 4 Total Protein 7.0 Albumin 3.9 Globulin 3.1 Albumin/Globulin Ratio 1.3 Urine Color Yellow Urine Clarity Clear Urine pH 8.0 Ur Specific [place] 1.010 Urine Protein 30 H Urine Glucose (UA) 1000 H Urine Ketones 150 A* Urine Occult Blood Negative Urine Nitrite Negative Urine Bilirubin Negative Urine Urobilinogen Normal Ur Leukocyte Esterase Negative Urine RBC 0 SEEN Urine WBC 0 SEEN Ur Squamous Epith Cells 0 SEEN Urine Bacteria 0 SEEN Urine Mucus 0 SEEN Radiography Diagnostic Testing: Clinical Impression(s) from Imaging Studies Brain CT 07/11/24 12:43 IMPRESSION: Chronic involutional changes of the brain. Electronically Signed: Wilbert Dalal MD at 13:55 EDT , Chest X-Ray 07/11/24 12:43 IMPRESSION: Findings suggestive of a stable mild scarring at the left lung base. Cardiomegaly. Electronically Signed: Wilbert Dalal MD at 13:57 EDT , Discharge Plan Triage Chief Complaint: Headache ED Provider: Marcus Tejada Dx/Rx/DC Orders Clinical Impression: Dizziness Prescriptions: No Action esomeprazole magnesium [Nexium] 20 mg capsule,delayed release(DR/EC) 20 mg PO DAILY carvedilol 6.25 mg tablet 6.25 mg PO BID spironolactone 25 mg tablet 25 mg PO DAILY Jardiance 10 mg tablet 10 mg PO DAILY Entresto 49-51 mg tablet 1 tab PO BID Primary Care Provider: Care Physician,No Primary Referrals: Care Physician,No Primary [Primary Care Provider] - Print Language: Georgian
--- NOTE | 2024-07-11 16:36 | CT_ITS ---
INDICATION: Neuro deficit, acute, stroke suspected EXAMINATION: CTA HEAD, AND CTA NECK TECHNIQUE: Routine carotid CT angiogram protocol was performed without and with IV contrast. In addition, images were obtained of the [place]. NASCET criteria using the distal ICAs for comparison were used for evaluation of stenoses. 3D reconstructions were reviewed. The protocol utilizes one or more of the following dose reduction techniques: automated exposure control, adjustment of mA and/or kV according to patient size,and/or use of iterative reconstruction technique. IV Contrast dosage and agent: COMPARISON: FINDINGS: --CTA NECK: AORTIC ARCH AND BRANCHES: Normal anatomy, patent. RIGHT CCA: No occlusion, significant stenosis or dissection. RIGHT ICA: No occlusion, significant stenosis or dissection. LEFT CCA: No occlusion, significant stenosis or dissection. LEFT ICA: No occlusion, significant stenosis or dissection. RIGHT VERTEBRAL ARTERY: No occlusion, significant stenosis or dissection. LEFT VERTEBRAL ARTERY: No occlusion, significant stenosis or dissection. NECK SOFT TISSUES: Unremarkable. Peripheral nodules are noted in the visualized lung apices. --CTA HEAD: --Anterior circulation: ICAs: No significant stenosis at the intracranial/visualized segments. ACAs: No significant stenosis at the visualized segments. ACOM: Present. MCAs: No significant stenosis at the visualized segments. --Posterior circulation: PCOMs: Patent on the left. Nonvisualization on the right. package line operator: Nonvisualization of the left P1 segment. BASILAR ARTERY: No significant stenosis. VERTEBRAL ARTERIES: No significant stenosis at the intradural/visualized segments. No evidence of intracranial aneurysm or vascular malformation. CT/CTA Head AND Neck W/ Contrast IMPRESSION: Negative CTA Carotid, and CTA Brain. Electronically Signed: Joseph Pittman DO at 17:47 EDT ,
--- NOTE | 2024-07-11 16:36 | ECHOD_ITS ---
Reason For Study: TIA/CVA Procedure This was a 2D Doppler, Color Flow transthoracic echocardiogram. Exam performed portable in patient room. Left Ventricle Normal LV size. Mild concentric left ventricular hypertrophy. The left ventricular ejection fraction is 60 %. Diastolic function is indeterminate. Right Ventricle Normal right ventricle. Atria The left atrium is moderately enlarged. Normal right atrium. Bubble contrast study is negative for PFO/ASD. Mitral Valve Moderate mitral annular calcification. Moderate mitral valve regurgitation. Tricuspid Valve Trivial tricuspid valve insufficiency. Unable to estimate RV systolic pressure due to insufficient tricuspid regurgitant envelope. Aortic Valve Trisinus/trileaflet aortic valve. Calcified aortic valve annulus. Pulmonic Valve The pulmonic valve is not well visualized. Great Vessels Normal sized aortic root. Pericardium/Pleural No pericardial effusion. Medication Performed a rapid injection of agitated mix of 9 cc saline and 1cc air to assess for atrial septal defect. MMode/2D Measurements & Calculations LVIDd: 6.2 cm IVSd: 1.4 cm LVOT diam: 2.1 cm LVIDs: 5.1 cm LVPWd: 1.0 cm RVDd: 3.3 cm FS: 18.8 % LVOT area: 3.4 cm2 LA dimension: 4.5 cm asc Aorta Diam: 3.6 cm LAV(MOD-bp): 60.6 ml LAV(MOD-bp) Indexed: 34.6 ml/m2 LAV(MOD-sp2): 65.3 ml LAV(MOD-sp4): 51.6 ml SV(MOD-sp4): 41.3 ml LVAd ap4: 27.6 cm2 LVAd ap2: 29.3 cm2 LVLd ap4: 7.9 cm LVLd ap2: 7.8 cm EDV(MOD-sp4): 79.5 ml EDV(MOD-sp2): 89.9 ml EDV(sp4-el): 81.7 ml EDV(sp2-el): 93.6 ml LVAs ap4: 18.1 cm2 LVAs ap2: 18.5 cm2 LVLs ap4: 7.1 cm LVLs ap2: 6.9 cm ESV(MOD-sp4): 38.2 ml ESV(MOD-sp2): 41.1 ml ESV(sp4-el): 39.0 ml ESV(sp2-el): 41.7 ml EF(MOD-sp4): 51.9 % EF(MOD-sp2): 54.3 % EF(sp4-el): 52.2 % SV(MOD-sp2): 48.8 ml SV(sp4-el): 42.7 ml Ao sinus diam: 3.[address] Junction: 2.7 cm LA A4 area: 19.9 cm2 LA dimension(2D): 4.4 cm TAPSE: 2.0 cm RA A4 area: 11.6 cm2 Time Measurements MV dec time: 0.19 sec Doppler Measurements & Calculations MV E max julian: 94.8 cm/sec Lat Peak E' Julian: 10.3 cm/sec Med Peak E' Julian: 7.4 cm/sec MV A max julian: 95.6 cm/sec E/E' lat: 9.2 E/E' med: 12.7 MV E/A: 0.99 MV dec slope: 502.8 cm/sec2 Ao V2 max: 134.0 cm/sec LV V1 max: 112.9 cm/sec Ao max P.2 mmHg LV V1 max P.1 mmHg Ao V2 mean: 97.9 cm/sec LV V1 mean P.0 mmHg Ao mean P.1 mmHg LV V1 mean: 82.4 cm/sec Ao V2 VTI: 27.9 cm LV V1 VTI: 26.1 cm AV (velocity ratio): 0.93 JESSE(I,D): 3.2 cm2 JESSE(V,D): 2.8 cm2 SV(LVOT): 88.3 ml PA V2 max: 69.4 cm/sec PA max PG (full): 0.36 mmHg ECHO/Echo Complete Interpretation Summary Mild concentric left ventricular hypertrophy. The left ventricular ejection fraction is 60 %. The left atrium is moderately enlarged. Moderate mitral annular calcification. Moderate mitral valve regurgitation. Calcified aortic valve annulus. Bubble contrast study is negative for PFO/ASD. Ordering Physician: Mary Olguin Referring Physician: Marcus Tejada Performed By: Fabiola Mccarthy RDCS
[2024-07-11 17:32] VITALS: BP 118/92; BP 127/67; BP 139/102; PULSE 64; PULSE 68; PULSE 75; RESP 18; TEMP 36.3; O2SAT 98; BMI 29.9
[2024-07-11] MEDS: Aspirin 81 MG TAB.CHEW PO (18:06)
[2024-07-11] MEDS: 0.9% Normal Saline (1000mL) 1,000 ML 75 ML IV (18:06)
[2024-07-11] MEDS: SACUBITRIL/VALSARTAN 49-51 MG TABLET 1 EACH PO (21:34)
[2024-07-11] MEDS: Carvedilol 6.25 MG Tablet PO (21:34)
[2024-07-11] MEDS: Atorvastatin Calcium 40 MG Tablet PO (21:34)
[2024-07-11 22:00] VITALS: BP 117/53; PULSE 65; RESP 16; TEMP 36.8; O2SAT 95
[2024-07-12 01:15] VITALS: BMI 29.9
[2024-07-12 02:00] VITALS: BP 109/56; PULSE 70; RESP 16; TEMP 36.4; O2SAT 100
[2024-07-12 05:13] VITALS: BP 110/58; PULSE 72; RESP 16; TEMP 36.5; O2SAT 99
[2024-07-12 05:15] VITALS: BMI 29.9
[2024-07-12 06:26] LABS: Absolute Lymphocyte Count 1.84 X10^3/uL (0.83-4.51); Absolute Neutrophil Count 2.4 X10^3/uL (2.0-7.7); Basophil# 0.05 X10^3/uL; Eosinophil# 0.17 X10^3/uL; Eosinophils% 3.4 % (0-5); Hematocrit 35.5 % (37-47); Hemoglobin 11.6 g/dL (12.0-15.0); Lymphocyte # 1.84 X10^3/ul (0.83-4.51); Lymphocyte % 36.7 % (19-41); Mean Corp Hgb Conc 32.7 g/dL (32-36); Mean Corpuscular Hgb 32.2 pg (27.0-32.0); Mean Corpuscular Volume 98.6 fL (81-99); Mean Platelet Vol. 9.1 fl (6.2-12.0); Monocyte# 0.52 X10^3/uL; Monocyte% 10.4 % (0-10); NRBC Flagged by Analyzer 0 % (0-5); Neutrophil # 2.42 X10^3/uL (2.7-7.7); Neutrophil % 48.3 % (47-70); Platelet Count 235 K/mm3 (150-450); RBC Distribution Width CV 13.2 % (11.6-14.6); RBC Distribution Width SD 47.6 fl (35.1-43.9)
[2024-07-12 07:18] LABS: ALB/GLOB Ratio 1.1 RATIO (0.9-2.4); AST(SGOT) 11 U/L (15-37); Alanine Aminotransfer ALT/SGPT 17 U/L (13-56); Albumin, Serum 3.2 g/dL (3.2-5.0); Alkaline Phosphatase 61 U/L (45-117); Anion Gap 5 (5-15); BUN 18 mg/dL (7-18); BUN/Creat Ratio 22.6 RATIO (10-20); Calcium,Total 9.4 mg/dL (8.5-10.1); Chloride 111 mmol/L (98-107); Cholesterol 185 mg/dL (200); EST Glomerular Filtration Rate 74 mL/min (>60); Est Glom Filt Rate - Afr Amer 89 mL/min (>60); Estimated Creatinine Clearance 52.89 ml/min; Globulin 2.8 g/dL (2.2-4.2); Glucose 99 mg/dL (74-106); High Density Lipoprotein 68 mg/dL; Magnesium 2.2 mg/dL (1.6-2.6); Potassium 4.2 mmol/L (3.5-5.1); Sodium Level 139 mmol/L (136-145); Triglycerides 59 mg/dL; Very Low Density Lipoprotein 12 mg/dL (5-40)
--- NOTE | 2024-07-12 08:00 | MRI_ITS ---
EXAM: MR HEAD WITHOUT INTRAVENOUS CONTRAST CLINICAL INDICATION: Possible TIA/Stroke, MIGRAINE, CONFUSION, LETHARGIC EPISODE TECHNIQUE: Multiplanar and multisequence MR images of the brain were obtained without intravenous contrast. COMPARISON: CT brain 07/11/2024, CTA had 07/11/2024 FINDINGS: BRAIN AND EXTRA-AXIAL SPACES: Normal. No intra- or extra-axial hemorrhage. No evidence of acute infarct. No intracranial mass or mass effect. Normal preservation of the valero/white matter interface. Posterior fossa structures are unremarkable. Ventricles are appropriate for age. No hydrocephalus. Basal cisterns are patent. SELLA: Normal. Normal sella turcica, pituitary gland, infundibular stalk, optic chiasm and hypothalamus. AUDITORY SYSTEM: Normal. The internal auditory canals are patent. BONES/JOINTS: Intact calvarium. SINUSES: Unremarkable as visualized. Clear. MASTOID AIR CELLS: Unremarkable as visualized. Clear. ORBITS: Unremarkable as visualized. Both globes, extraocular muscles, optic nerves and retrobulbar fat appear unremarkable. VASCULATURE: Unremarkable as visualized. Normal flow voids in the major intracranial circulation. MRI/Brain without Contrast IMPRESSION: Normal MRI brain without intravenous contrast. Electronically Signed: Travis Vann MD at 10:39 EDT ,
[2024-07-12 08:05] VITALS: BP 128/46; PULSE 68; RESP 16; TEMP 36.4; O2SAT 96
[2024-07-12] MEDS: LORazepam 0.5 MG Tablet PO (08:59)
[2024-07-12] MEDS: Aspirin 81 MG TAB.CHEW PO (09:01)
[2024-07-12] MEDS: Carvedilol 6.25 MG Tablet PO (09:02)
[2024-07-12] MEDS: Spironolactone 25 MG Tablet PO (09:02)
[2024-07-12] MEDS: Enoxaparin 40 MG/0.4 ML Syringe SC (09:02)
[2024-07-12] MEDS: SACUBITRIL/VALSARTAN 49-51 MG TABLET 1 EACH PO (09:02)
[2024-07-12] MEDS: Pantoprazole Sodium 20 MG Tablet PO (09:03)
--- NOTE | 2024-07-12 13:22 | DCINST_ITS ---
Discharge Instructions Diet Discharge Diet: Low fat / Low cholesterol Activity Discharge Activity: Return to Normal Activity Dressing / Incision Call your doctor if you observe: Fever of 101 or Higher, Shortness of breath, Dizziness, Fainting spells, Swelling in the ankles, Chest pain and Increased palpitations (irregular heartbeat) Follow Up Care Test Results: Test results from this visit will be discussed in further detail at your follow- up appointment, if applicable. Discharge Plan Admission Admit Date/Time: 07/11/24 15:48 Attending Provider: Francisco Corcoran Primary Care Provider: Care Physician,Kasia Primary Consulting Providers: Sriram Medina; Geraldo Castillo; Francisca Hartmann; Yaz Kitchen; Danielle Mc; Blair Giron; Laurie Felder; Conor Betancourt; Jasen Nelson; Jeison Ochoa; Jenniffer Palacios; Sukhjinder Myers; Natalia Ellis; Tio Beltran; Ellie Cary; Hermann Aguayo; Riky Hardy; Juan Luis Lopez; Alyse Lobato; Maribeth Savage; Mary Olguin Discharge Orders/Prescriptions Prescriptions: New atorvastatin 40 mg Tablet 40 mg PO QHS 30 Days Qty: 30 0RF Continued esomeprazole magnesium [Nexium] 20 mg capsule,delayed release(DR/EC) 20 mg PO DAILY carvedilol 6.25 mg tablet 6.25 mg PO BID spironolactone 25 mg tablet 25 mg PO DAILY Jardiance 10 mg tablet 10 mg PO DAILY Entresto 49-51 mg tablet 1 tab PO BID Referrals / Follow Up: Care Physician,No Primary [Primary Care Provider] - Disposition Disposition (needs filled in before D/C Order can be placed): Home, Self Care
--- NOTE | 2024-07-12 13:34 | DS.PCM_ITS ---
Providers Date of Admission: 07/11/24 Primary Care Physician: No Primary Care Phys Consultations 07/11/24 17:32 Consult: Tele-Neurology Routine Consulting Provider: [facility] Reason for Consult: Acute Ischemic Stroke/TIA EMERGENT Consult: No MD Notified: Yes Date Notified: 07/11/24 Time Notified: 16:34 Method of Notification: Answering Service Nursing Unit Staff Notify [facility] of Tele-Neurology Consult: Yes Reason For Visit: DIZZINESS, ABN VISION Diagnosis Discharge Diagnosis (1) Headache: Status: Acute Code(s): R51.9 - Headache, unspecified Medications at Discharge Home Medications esomeprazole magnesium 20 mg capsule,delayed release (Nexium) 20 mg PO DAILY 07/01/20 carvedilol 6.25 mg tablet 6.25 mg PO BID 02/14/23 empagliflozin 10 mg tablet (Jardiance) 10 mg PO DAILY 02/14/23 sacubitril 49 mg-valsartan 51 mg tablet (Entresto) 1 tab PO BID 02/14/23 spironolactone 25 mg tablet 25 mg PO DAILY 02/14/23 atorvastatin 40 mg tablet 40 mg PO QHS 30 days #30 tabs 07/12/24 Hospital Course Operations None Procedures 2-D Echocardiogram Summary of Care Provided Minutes Spent on Discharge: 33 Hospital Course: Per HPI: HARPREET SYKES, is a 79 F with a history of migraines, CHF, GERD, irregular heartbeat who presented [facility] ED 07/11/2024 with the myriad of symptoms. She reports that she has been having problems for the past 2 years since she started Entresto and intermittently will get what she said her migraines and endorses that her Optho DrBarbara Diagnosed her as such. She gets some blurring of her vision and then a whole headache will feel lightheaded. These usually last roughly 25 minutes and then will resolve however today she said that her eyes became blurry and she had a headache and lightheaded but then could not remember what happened after, said she was trying to express something to him but he could not understand what she was saying and she did not seem to be able to communicate effectively though was not slurring speech. This lasted for at least an hour which is much longer than usual symptoms. She does report intermittent lightheaded episodes and said when she sits down and rests her head down they will resolve. Has intermittent problems with her bowels and reports IBS, no chest pain or shortness of breath, feels she gets hot and cold at times but no measured fever. No unilateral numbness, weakness, tingling. No changes in bladder. No swelling in extremities. CT in ED and lab workup fairly benign aside from glucosuria and ketones in her urine but no gap or elevated glucose. Hospital Course: 1. Ocular migraines?79-year-old female presented to the hospital with lightheadedness dizziness as well as a headache which was accompanied by admission expressive aphasia. She does have a history of ocular migraines as diagnosed by her manager cleaning. Echo was unremarkable with no ASD or PFO, and MRI was negative for stroke. Her migraine has resolved and so have her other symptoms. Of note her LDL was slightly elevated to 105 therefore we will plan to discharge her on Lipitor otherwise she can resume all of her other home medications. CTA of the head and neck was unremarkable. I discussed with her the plan for discharge today she expressed understanding of the risk benefits to going home and would like to go home today. 2. CHF unclear type, GERD chronic medical conditions which complicate her care. Her home medications were continued where appropriate Physical Exam Narrative General: Alert, Oriented x3, Cooperative, No apparent distress HEENT: Atraumatic, PERRLA, EOMI, Normocephalic Oral: Moist Mucosa Neck: Supple, No JVD Lungs: Clear to auscultation, Normal air movement, No rhonchi, No wheeze, No rales Cardiovascular: Regular rate, Regular Rhythm, Normal S1, Normal S2, No murmurs Abdomen: Soft, Non Tender, Non-Distended, No Hepato-splenomegaly Extremities: No edema, Capillary Refill Less than 3 Seconds Skin: No rashes, No breakdown Musculoskeletal: No Tenderness to Palpation of Joints or Extremities Neurological: No focal neurological deficits, Motor Exam 5/5 strength throughout, Sensory exam intact to light touch and pain Psych/Mental Status: Normal Affect, Appropriate care history Weight / BMI Weight Weight: 163 lb 9.328 oz Body Mass Index (BMI) 29.9 ABG / Lab / Microbiology Data 07/12/24 06:07 07/12/24 06:07 Laboratory: Laboratory Results - last 24 hr 07/11/24 12:18: Sodium 135 L, Potassium 4.6, Chloride 104, Carbon Dioxide 24.0, Anion Gap 7, BUN 18, Creatinine 0.86, Est GFR (MDRD) Af Amer 81, Est GFR (MDRD) Non-Af 67, BUN/Creatinine Ratio 20.8 H, Glucose 103, Calcium 10.4 H, Total Bilirubin 0.90, AST 14 L, ALT 20, Alkaline Phosphatase 68, Troponin I High Sens 4, Total Protein 7.0, Albumin 3.9, Globulin 3.1, Albumin/Globulin Ratio 1.3 07/11/24 13:58: Urine Color Yellow, Urine Clarity Clear, Urine pH 8.0, Ur Specific [place] 1.010, Urine Protein 30 H, Urine Glucose (UA) 1000 H, Urine Ketones 150 A*, Urine Occult Blood Negative, Urine Nitrite Negative, Urine Bilirubin Negative, Urine Urobilinogen Normal, Ur Leukocyte Esterase Negative, Urine RBC 0 SEEN, Urine WBC 0 SEEN, Ur Squamous Epith Cells 0 SEEN, Urine Bacteria 0 SEEN, Urine Mucus 0 SEEN 07/12/24 06:07: WBC 5.0, RBC 3.60 L, Hgb 11.6 L, Hct 35.5 L, MCV 98.6, MCH 32.2 H, MCHC 32.7, RDW Std Deviation 47.6 H, RDW Coeff of Amilcar 13.2, Plt Count 235, MPV 9.1, Immature Gran % (Auto) 0.200, Neut % (Auto) 48.3, Lymph % (Auto) 36.7, [place] % (Auto) 10.4 H, Eos % (Auto) 3.4, Baso % (Auto) 1.0, Absolute Neuts (auto) 2.4, Absolute Lymphs (auto) 1.84, Nucleated RBC % 0, Sodium 139, Potassium 4.2, Chloride 111 H, Carbon Dioxide 23.0, Anion Gap 5, BUN 18, Creatinine 0.80, Estim Creat Clear Calc 52.89, Est GFR (MDRD) Af Amer 89, Est GFR (MDRD) Non-Af 74, B UN/Creatinine Ratio 22.6 H, Glucose 99, Calcium 9.4, Magnesium 2.2, Total Bilirubin 0.70, AST 11 L, ALT 17, Alkaline Phosphatase 61, Total Protein 6.0 L, Albumin 3.2, Globulin 2.8, Albumin/Globulin Ratio 1.1, Triglycerides 59, Cholesterol 185, LDL Cholesterol 105, VLDL Cholesterol 12, HDL Cholesterol 68, TSH 1.310 Radiography Diagnostic Testing: Radiology Impression Brain CT 07/11/24 12:43 IMPRESSION: Chronic involutional changes of the brain. Electronically Signed: Wilbert Dalal MD at 13:55 EDT , Chest X-Ray 07/11/24 12:43 IMPRESSION: Findings suggestive of a stable mild scarring at the left lung base. Cardiomegaly. Electronically Signed: Wilbert Dalal MD at 13:57 EDT , Echocardiogram 07/11/24 16:36 Interpretation Summary Mild concentric left ventricular hypertrophy. The left ventricular ejection fraction is 60 %. The left atrium is moderately enlarged. Moderate mitral annular calcification. Moderate mitral valve regurgitation. Calcified aortic valve annulus. Bubble contrast study is negative for PFO/ASD. Ordering Physician: Mary Olguin Referring Physician: Marcus Tejada Performed By: Fabiola Mccarthy RDCS Head/Neck CTA 07/11/24 16:36 IMPRESSION: Negative CTA Carotid, and CTA Brain. Electronically Signed: Joseph Pittman DO at 17:47 EDT , Brain MRI 07/12/24 08:00 IMPRESSION: Normal MRI brain without intravenous contrast. Electronically Signed: Travis Vann MD at 10:39 EDT , D/C Instructions Discharge Diet: Low fat / Low cholesterol Call your doctor if you observe: Fever of 101 or Higher, Shortness of breath, Dizziness, Fainting spells, Swelling in the ankles, Chest pain and Increased palpitations (irregular heartbeat) Meaningful Use Info Meaningful Use Meaningful Use Diagnoses (Choose all that apply): None applicable Ischemic Stroke Statin Dosing Therapy Reference: STATIN DOSE THERAPY REFERENCE: * Patients > 75 years receive moderate or high dose statin therapy. * Patients 75 years or YOUNGER should receive HIGH intensity statin dose unless contraindicated. You will be required to document reason for non-treatment if statin daily dose does not meet guidelines. HIGH DOSE STATIN THERAPY DAILY Atorvastatin > than or = to 40 mg Rosuvastatin > than or = to 20 mg Amlodipine + Atorvastatin > than or = to 2.5/40 mg Ezetimibe + Simvastatin 10/80 mg Simvastatin 80mg Discharge Plan Admission Admit Date/Time: 07/11/24 15:48 Attending Provider: Francisco Corcoran Primary Care Provider: Care Physician,No Primary Consulting Providers: Sriram Medina; Geraldo Castillo; Francisca Hartmann; Yaz Kitchen; Danielle Mc; Blair Giron; Laurie Felder; Conor Betancorut; Jasen Nelson; Jeison Ochoa; Jenniffer Palacios; Sukhjinder Myers; Natalia Ellis; Tio Beltran; Ellie Cary Mike; Hermann Aguayo; Riky Hardy; Juan Luis Lopez; Alyse Lobato; Maribeth Savage; Mary Olguin Discharge Orders/Prescriptions Prescriptions: New atorvastatin 40 mg Tablet 40 mg PO QHS 30 Days Qty: 30 0RF Continued esomeprazole magnesium [Nexium] 20 mg capsule,delayed release(DR/EC) 20 mg PO DAILY carvedilol 6.25 mg tablet 6.25 mg PO BID spironolactone 25 mg tablet 25 mg PO DAILY Jardiance 10 mg tablet 10 mg PO DAILY Entresto 49-51 mg tablet 1 tab PO BID Referrals / Follow Up: Care Physician,No Primary [Primary Care Provider] - Disposition Disposition (needs filled in before D/C Order can be placed): Home, Self Care Charges/Coding Visit Charges Inpatient E&M: 20271 Disch Hosp >30min
--- NOTE | 2024-07-12 13:43 | NEURO.CONS ---
Assessment and Plan: Neuro Assessment/Plan HARPREET SYKES is a 79 woman with vestibular migraine. Her episode of confusion/aphasia was related to this process. She has not had a stroke or TIA. No further neurological testing needed at this time. Episodes have been occurring for years and are likely to recur. Please refer to local neurologist for evaluation and management of vestibular migraine. I personally attended this patient and spent a total time of 25 minutes evaluating this patient including clinical assessment, review of chart, medical history imaging, and determining appropriate treatment and workup. Hermann Aguayo MD Legal Archivist [facility] Teleneurology HPI Consult Data Date of Consult: 07/12/24 HPI Narrative HPI Narrative: HARPREET SYKES, is a 79 F with history of ocular migraine who presents for episode of dizziness, headache, and confusion. She reports that for a long time - years - she has suffered what her eye doctor called ocular migraines, accompanied by blurry vision, the sensation of her eye sorenson moving, tearing, and head pain. The ocular symptoms usually pass in 10 minutes. This episode was alarming because the symptoms persisted (an hour or more) and she had accompanying confusion. Per her , who witnessed the event and is present to add to history, She was saying things that didn't make sense. She had difficulty picking out clothes to wear to the hospital (which is unusual) and had to help. During episode she was out of it but not unconscious. She had her head down because of the dizziness, which sounds vertiginous by description. She had some accompanying nausea. Pain was holocephalic. Resolved now, though her head feels funny. MRI Brain reviewed, no stroke. CTA [place]/Neck reviewed, no occlusion or stenosis. [facility] Medical History Non-smoker Irregular heart beat Congestive heart failure (CHF) Migraines Hemorrhoids s/p PH probe insertion Dilation of esophagus Uterine prolapse Arthritis Anxiety Irritable bowel syndrome with constipation History of colon polyps Dysphagia GERD (gastroesophageal reflux disease) Home Medications ?Medication ?Instructions ?Recorded ?Last Taken ?Type esomeprazole magnesium 20 mg 20 mg PO DAILY 07/01/20 07/11/24 History capsule,delayed release (Nexium) carvedilol 6.25 mg tablet 6.25 mg PO BID 02/14/23 07/11/24 History empagliflozin 10 mg tablet 10 mg PO DAILY 02/14/23 07/11/24 History (Jardiance) sacubitril 49 mg-valsartan 51 mg 1 tab PO BID 02/14/23 07/11/24 History tablet (Entresto) spironolactone 25 mg tablet 25 mg PO DAILY 02/14/23 07/11/24 History atorvastatin 40 mg tablet 40 mg PO QHS 30 days #30 tabs 07/12/24 Unknown Rx Allergy/AdvReac Type Severity Reaction Status Date / Time Penicillins Allergy Hives Verified 07/11/24 11:49 codeine AdvReac Other Verified 07/11/24 11:49 Family History Mother Diabetes Brother Heart disease Hypertension Sister CAD (coronary artery disease) Diabetes Surgical History History of esophagogastroduodenoscopy (~10/17/17) History of nasal surgery History of wisdom tooth extraction History of appendectomy History of bladder suspension procedure History of hysterectomy Social History Smoking Status: Never smoker alcohol intake: current alcohol intake frequency: a few times a month Vital Signs Vital Signs Vital Signs: 07/11/24 15:00 07/11/24 15:46 07/11/24 17:32 Temperature 97.5 F L 97.3 F L Temperature Source Temporal Pulse Rate 70 64 64 Pulse Rate [Lying] Pulse Rate [Sitting (for 1 minute prior to obtaining)] Pulse Strength Respiratory Rate 20 H 18 18 Respiratory Effort Respiratory Depth Respiratory Pattern Blood Pressure 130/66 H 136/71 H 139/102 H Blood Pressure [Lying] Blood Pressure [Sitting (for 1 minute prior to obtaining)] Blood Pressure [Standing (for 1 minute prior to obtaining)] Blood Pressure Mean 87 92 114 Blood Pressure Mean [Lying] Blood Pressure Mean [Sitting (for 1 minute prior to obtaining)] Blood Pressure Mean [Standing (for 1 minute prior to obtaining)] Blood Pressure Source Monitor Blood Pressure Position Semi-Fowlers Blood Pressure Location Right Arm Pulse Ox 99 99 98 Oxygen Delivery Method Room Air Room Air 07/11/24 17:32 07/11/24 22:00 07/11/24 22:00 Temperature 98.2 F Temperature Source Oral Pulse Rate 65 Pulse Rate [Lying] 68 Pulse Rate [Sitting (for 1 minute prior to obtaining)] 75 Pulse Strength Normal (2+) Respiratory Rate 16 Respiratory Effort Respiratory Depth Respiratory Pattern Blood Pressure 117/53 L Blood Pressure [Lying] 139/102 H Blood Pressure [Sitting (for 1 minute prior to obtaining)] 118/92 H Blood Pressure [Standing (for 1 minute prior to obtaining)] 127/67 H Blood Pressure Mean 74 Blood Pressure Mean [Lying] 114 Blood Pressure Mean [Sitting (for 1 minute prior to obtaining)] 100 Blood Pressure Mean [Standing (for 1 minute prior to obtaining)] 87 Blood Pressure Source Monitor Blood Pressure Position Supine Blood Pressure Location Right Arm Pulse Ox 95 Oxygen Delivery Method Room Air 07/11/24 22:00 07/12/24 02:00 07/12/24 05:13 Temperature 97.6 F L 97.7 F L Temperature Source Temporal Temporal Pulse Rate 70 72 Pulse Rate [Lying] Pulse Rate [Sitting (for 1 minute prior to obtaining)] Pulse Strength Respiratory Rate 16 16 Respiratory Effort Respiratory Depth Normal Respiratory Pattern Normal Blood Pressure 109/56 L 110/58 L Blood Pressure [Lying] Blood Pressure [Sitting (for 1 minute prior to obtaining)] Blood Pressure [Standing (for 1 minute prior to obtaining)] Blood Pressure Mean 73 75 Blood Pressure Mean [Lying] Blood Pressure Mean [Sitting (for 1 minute prior to obtaining)] Blood Pressure Mean [Standing (for 1 minute prior to obtaining)] Blood Pressure Source Monitor Monitor Blood Pressure Position Supine Supine Blood Pressure Location Right Arm Pulse Ox 100 99 Oxygen Delivery Method Room Air Room Air Room Air 07/12/24 08:05 07/12/24 08:07 Temperature 97.6 F L Temperature Source Oral Pulse Rate 68 Pulse Rate [Lying] Pulse Rate [Sitting (for 1 minute prior to obtaining)] Pulse Strength Respiratory Rate 16 Respiratory Effort Normal Non-Labored Respiratory Depth Normal Respiratory Pattern Normal Blood Pressure 128/46 H Blood Pressure [Lying] Blood Pressure [Sitting (for 1 minute prior to obtaining)] Blood Pressure [Standing (for 1 minute prior to obtaining)] Blood Pressure Mean 73 Blood Pressure Mean [Lying] Blood Pressure Mean [Sitting (for 1 minute prior to obtaining)] Blood Pressure Mean [Standing (for 1 minute prior to obtaining)] Blood Pressure Source Monitor Blood Pressure Position Semi-Fowlers Blood Pressure Location Right Arm Pulse Ox 96 Oxygen Delivery Method Room Air Room Air Weight Weight: 74.2 kg Body Mass Index (BMI) 29.9 EEG Results Procedure Details EEG Procedure Details: HARPREET SYKES is a 79 year old F with a past medical history of , who presents for evaluation of Electroencephalogram on DATE at TIME NIHSS NIHSS Nursing Documentation NIHSS Nursing Documentation: NIH Stroke Scale Start: 07/11/24 12:23 Freq: Status: Discharge Protocol: Activity Type Activity Date Activity User E-sign Co-sign Detail Recorded Client Recorded Date Recorded By Document 07/11/24 12:23 [facility] [id number] 07/11/24 12:24 GUILLERMINA 07/11/24 12:23 NIH Stroke Scale [NIHSS] A score of 0 is normal or asymptomatic . Total possible score is 42. Inpatient: RN or Physician to activate a stroke alert for onset of new stroke symptoms or with NIHSS increase >/= 3 points. Following change in neurological status, NIHSS will be performed per physician order or more frequently PRN. -1a. Level of Consciousness Alert; keenly responsive -1b. LOC Questions Answers BOTH questions correctly. -1c. LOC Commands Performs both tasks correctly . -2. Best Gaze Normal -3. Visual No visual loss -4. Facial Palsy Normal symmetrical movements -5a. Left Arm No drift; arm holds 90 (or 45 ) degrees for full 10 seconds -5b. Right Arm No drift; arm holds 90 (or 45 ) degrees for full 10 seconds -6a. Left Leg No drift; leg holds 30-degree position for full 5 seconds -6b. Right Leg No drift; leg holds 30-degree position for full 5 seconds -7. Limb Ataxia Absent -8. Sensory Normal; no sensory loss -9. Best Language No aphasia; normal -10. Dysarthria Normal -11. Extinction and Inattention No abnormality -Total 0 Query Text:A score of 0 is normal or asymptomatic. Total possible score is 42 . ED: Notify Physician for NIHSS increase by > / = 3 points. Inpatient: RN or Physician to activate a stroke alert for NIHSS increase of > / = 3 points. NIHSS: Ischemic Stroke/TIA Start: 07/11/24 17:32 Text: For PCU Patients: NIH and Neuro Check every 4 Status: Active hours, PRN and with change in RN caregiver. Freq: [id number] Protocol: Activity Type Activity Date Activity User E-sign Co-sign Detail Recorded Client Recorded Date Recorded By Document 07/12/24 08:05 SHEELA [id number] 07/12/24 09:42 SHEELA 07/12/24 08:05 -1a. Level of Consciousness Alert; keenly responsive -1b. LOC Questions Answers BOTH questions correctly. -1c. LOC Commands Performs both tasks correctly . -2. Best Gaze Normal -3. Visual No visual loss -4. Facial Palsy Normal symmetrical movements -5a. Left Arm No drift; arm holds 90 (or 45 ) degrees for full 10 seconds -5b. Right Arm No drift; arm holds 90 (or 45 ) degrees for full 10 seconds -6a. Left Leg No drift; leg holds 30-degree position for full 5 seconds -6b. Right Leg No drift; leg holds 30-degree position for full 5 seconds -7. Limb Ataxia Absent -8. Sensory Normal; no sensory loss -9. Best Language No aphasia; normal -10. Dysarthria Normal -11. Extinction and Inattention No abnormality -Total 0 Query Text:A score of 0 is normal or asymptomatic. Total possible score is 42 . ED: Notify Physician for NIHSS increase by > / = 3 points. Inpatient: RN or Physician to activate a stroke alert for NIHSS increase of > / = 3 points. Coma Scale [Assess] -Eye Opening Spontaneous -Motor Obeys Commands -Verbal Oriented [Total] -Coma Scale Total 15 Physical Exam Narrative AOx4, Able and willing historian, no aphasia EOMI, no nystagmus, facial sensation intact in V1/2/3, no facial droop, tongue midline, head rotation intact, SA/EE/EF/Cut Press Operator 5/5 bilaterally, able to rise and walk independently and without gross ataxia. Sensation intact to light touch in distal extremities. [id number] intact bilaterally. Lab / Micro Data 07/12/24 06:07 07/12/24 06:07 Labs: Laboratory Results - last 24 hr 07/11/24 13:58: Urine Color Yellow, Urine Clarity Clear, Urine pH 8.0, Ur Specific [place] 1.010, Urine Protein 30 H, Urine Glucose (UA) 1000 H, Urine Ketones 150 A*, Urine Occult Blood Negative, Urine Nitrite Negative, Urine Bilirubin Negative, Urine Urobilinogen Normal, Ur Leukocyte Esterase Negative, Urine RBC 0 SEEN, Urine WBC 0 SEEN, Ur Squamous Epith Cells 0 SEEN, Urine Bacteria 0 SEEN, Urine Mucus 0 SEEN 07/12/24 06:07: WBC 5.0, RBC 3.60 L, Hgb 11.6 L, Hct 35.5 L, MCV 98.6, MCH 32.2 H, MCHC 32.7, RDW Std Deviation 47.6 H, RDW Coeff of Amilcar 13.2, Plt Count 235, MPV 9.1, Immature Gran % (Auto) 0.200, Neut % (Auto) 48.3, Lymph % (Auto) 36.7, [place] % (Auto) 10.4 H, Eos % (Auto) 3.4, Baso % (Auto) 1.0, Absolute Neuts (auto) 2.4, Absolute Lymphs (auto) 1.84, Nucleated RBC % 0, Sodium 139, Potassium 4.2, Chloride 111 H, Carbon Dioxide 23.0, Anion Gap 5, BUN 18, Creatinine 0.80, Estim Creat Clear Calc 52.89, Est GFR (MDRD) Af Amer 89, Est GFR (MDRD) Non-Af 74, BUN/Creatinine Ratio 22.6 H, Glucose 99, Calcium 9.4, Magnesium 2.2, Total Bilirubin 0.70, AST 11 L, ALT 17, Alkaline Phosphatase 61, Total Protein 6.0 L, Albumin 3.2, Globulin 2.8, Albumin/Globulin Ratio 1.1, Triglycerides 59, Cholesterol 185, LDL Cholesterol 105, VLDL Cholesterol 12, HDL Cholesterol 68, TSH 1.310 Imaging Radiology Impression Brain CT 07/11/24 12:43 IMPRESSION: Chronic involutional changes of the brain. Electronically Signed: Wilbert Dalal MD at 13:55 EDT , Chest X-Ray 07/11/24 12:43 IMPRESSION: Findings suggestive of a stable mild scarring at the left lung base. Cardiomegaly. Electronically Signed: Wilbert Dalal MD at 13:57 EDT , Echocardiogram 07/11/24 16:36 Interpretation Summary Mild concentric left ventricular hypertrophy. The left ventricular ejection fraction is 60 %. The left atrium is moderately enlarged. Moderate mitral annular calcification. Moderate mitral valve regurgitation. Calcified aortic valve annulus. Bubble contrast study is negative for PFO/ASD. Ordering Physician: Mary Olguin Referring Physician: Marcus Tejada Performed By: Fabiola Mccarthy, [facility] Head/Neck CTA 07/11/24 16:36 IMPRESSION: Negative CTA Carotid, and CTA Brain. Electronically Signed: Joseph Pittman DO at 17:47 EDT , Brain MRI 07/12/24 08:00 IMPRESSION: Normal MRI brain without intravenous contrast. Electronically Signed: Travis Vann MD at 10:39 EDT , Active Medications Active Medications Active Medications: Current Medications Generic Name Dose Route Start Last Admin Trade Name Freq PRN Reason Stop Dose Admin Acetaminophen 650 mg 07/11/24 17:32 Acetaminophen 325 Mg Tablet PO Q6H PRN PRN Pain 1-10 Or Fever >100.7 Albuterol Sulfate 2.5 mg 07/11/24 17:32 Albuterol 2.5 Mg/3 Ml Vial.Neb. INHALATION Q2H PRN PRN SOB &/OR WHEEZING Aspirin 81 mg 07/12/24 08:00 07/12/24 09:01 Aspirin 81 Mg Tab.Chew PO 81 mg BREAKFAST REX Administration Atorvastatin Calcium 40 mg 07/11/24 22:00 07/11/24 21:34 Atorvastatin Calcium 40 Mg Tablet PO 40 mg QHS REX Administration Carvedilol 6.25 mg 07/11/24 22:00 07/12/24 09:02 Carvedilol 6.25 Mg Tablet PO 6.25 mg BID REX Administration Protocol Enoxaparin Sodium 40 mg 07/12/24 10:00 07/12/24 09:02 Enoxaparin 40 Mg/0.4 Ml Syringe SC 40 mg DAILY REX Administration Hydralazine HCl 5 mg 07/11/24 17:32 Hydralazine 20 Mg/Ml Vial IV 07/12/24 17:32 Q30M PRN maintain BP parameters with HR <60 Sodium Chloride 100 mls @ 15 mls/hr 07/11/24 17:35 IV .Q6H40M PRN Saline Flush Sodium Chloride 100 mls @ 15 mls/hr 07/11/24 17:35 IV .Q6H40M PRN Additional IVPB Infusion Iopamidol 0 ml 07/11/24 17:32 07/11/24 18:00 Contrast Allergy Safety Check IV Not Given X1 [facility] Labetalol HCl 10 - 20 mg 07/11/24 17:32 Labetalol (Prefilled) 20 Mg/4 Ml IV 07/12/24 17:32 Q10M PRN PRN maintain BP parameters with HR >/=60 Melatonin 3 mg 07/11/24 17:32 Melatonin 3 Mg Tablet PO QHS PRN PRN INSOMNIA Ondansetron HCl 4 mg 07/11/24 17:32 Ondansetron 4 Mg/2 Ml Vial IV Q8H PRN PRN NAUSEA/VOMITING Pantoprazole Sodium 20 mg 07/12/24 10:00 07/12/24 09:03 Pantoprazole Sodium 20 Mg Tablet PO 20 mg DAILY REX Administration Sacubitril/Valsartan 1 each 07/11/24 22:00 07/12/24 09:02 Sacubitril/Valsartan 49-51 Mg Tablet PO 1 each BID REX Administration Senna/Docusate Sodium 2 tablet 07/11/24 17:32 Senna/Docusate Sodium 1 Tablet PO BID PRN PRN Constipation Sodium Chloride 10 - 40 ml 07/11/24 17:35 0.9% Saline Lock 10 Ml Syringe IV UD PRN SALINE FLUSH Spironolactone 25 mg 07/12/24 10:00 07/12/24 09:02 Spironolactone 25 Mg Tablet PO 25 mg DAILY REX Administration Protocol
[2024-07-12 14:21] VITALS: BP 122/65; PULSE 70; RESP 16; TEMP 36.4; O2SAT 97
--- NOTE | 2024-07-12 14:23 | CASEMGMT ---
Patient has order for discharge. RN CM in to discuss needs at discharge, at bedside. Patient denies needs or help at discharge. Patient had no further questions or concerns.
[2024-07-12 14:35] VITALS: BP 122/65; PULSE 70; RESP 16; TEMP 36.4; O2SAT 97
== END 2024-07-12 13:34 | disposition home or self-care (01) ==
LOC: ED 15:54 → PCU 17:02
PROVIDERS: Admitting Provider Internal Medicine; Emergency Provider Emergency Medicine; Referring Provider Emergency Medicine; Visit Provider Family Medicine
DX: G43.809 Other migraine, not intractable, without status migrainosus (principal); I50.9 Heart failure, unspecified; K21.9 Gastro-esophageal reflux disease without esophagitis; R42 Dizziness and giddiness; Z79.899 Other long term (current) drug therapy; H53.8 Other visual disturbances; R47.01 Aphasia
CPT/HCPCS: 70450; 70496; 70498; 70551; 71046; 80053; 80061; 81001; 83735; 84443; 84484; 85025; 93005; 93306; 96360; 96361; 96372; 97161; 97166; 97802; 99221; 99285; J7030; Q9967; A4216; G0378

== ENCOUNTER 2024-12-11 07:07 | Day surgery (SDC) | payer MEDICARE, SELFPAY ==
--- NOTE | 2024-12-10 16:06 | PAT.ANESEVAL ---
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 When Was Last Pacemaker Check QUESTION #4 FULL TEXT: You/Your Family Experience fever (hyperthermia) with Anesthesia Last Oral Intake Last Oral intake: Last Oral Intake NPO since Meds taken in AM with sips of water? Meds patient instructed to take am of surgery PONV PONV - window shade cutter and mounter: PONV - window shade cutter and mounter Female Yes 12/10/24 11:52 HX of Motion Sickness No 12/10/24 11:52 HX of N/V After Surgery No 12/10/24 11:52 Non-Smoker Yes 12/10/24 11:52 Duration of Surgery greater No 12/10/24 11:52 than 60 minutes Number of Risk Factors 2 12/10/24 11:52 PONV Score Moderate Risk 12/10/24 11:52 Height & Weight Height & Weight: Anesthesia: Height & Weight Height 5 ft 2 in 10/30/24 10:09 Respiratory Assessment Respiratory Assessment - window shade cutter and mounter: Respiratory Tract Infection Hx - window shade cutter and mounter Hx Respiratory Tract Infection No 12/10/24 11:52 STOP Sleep Apnea STOP Sleep Apnea - window shade cutter and mounter: STOP Sleep Apnea - window shade cutter and mounter Hx Hypertension Yes: PER PT, CONTROLLED ON 12/10/24 11:52 MEDS Hx Sleep Apnea No 12/10/24 11:52 CPAP BIPAP Do you snore loudly (louder No 12/10/24 11:52 than talking or can be heard Do you often feel tired/ No 12/10/24 11:52 fatigued/ sleepy during daytime? Has anyone observed you stop No 12/10/24 11:52 breathing during sleep? STOP Results Negative 12/10/24 11:52 QUESTION #5 FULL TEXT : Do you snore loudly (louder than talking or can be heard through closed doors)? 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 Specify any problems Hx of Preganancy in last 3 No 12/10/24 11:52 Months Nurse Filling Out Transfusion MGRIFFITH 12/10/24 11:52 & Questions: Date: 12/10/24 12/10/24 11:52 Time: 11:56 12/10/24 11:52 Patient unable to answer at this time (ie. confused, unrespo /Reproduction History /Reproductive History - window shade cutter and mounter: /Reproductive Hx- window shade cutter and mounter Hx Now Gestational Age (in weeks): EDC: Hx Hx Para Hx Section SAB PFSH Medical History (Updated 12/10/24 @ 12:06 by Miranda Gibbs) Cancer Depression Injury of head and neck Dietary restriction History of hiatal hernia Gastric reflux Shortness of breath on exertion Chronic cough Non-smoker History of echocardiogram History of stress test Cardiology follow-up encounter Chronic dyspnea Pure hypercholesterolemia Moderate mitral regurgitation Mixed hyperlipidemia Diverticulosis of colon Diaphragmatic hernia without mention of obstruction or gangrene Cardiomegaly Atrial fibrillation Dizziness Irregular heart beat Congestive heart failure (CHF) Migraines Hemorrhoids s/p PH probe insertion GERD with esophagitis Dilation of esophagus Uterine prolapse Arthritis Anxiety Irritable bowel syndrome with constipation History of colon polyps Dysphagia Home Medications ?Medication ?Instructions ?Recorded ?Last Taken ?Type esomeprazole magnesium 20 mg 20 mg PO DAILY GERD 07/01/20 07/11/24 History capsule,delayed release (Nexium) Hydrocortisone 2.5%/lidocaine 5% #30 ea 10/30/24 Unknown Rx suppository (cmpd) (hydrocortisone 2.5%/lidocaine 5% suppository (compound)) psyllium husk 3.4 gram/5.4 gram 1 tbsp PO QDAY PRN constipation 10/30/24 Unknown History oral powder (Metamucil) carvedilol 6.25 mg tablet 6.25 mg PO BID heart #180 tabs 10/31/24 Unknown Rx empagliflozin 10 mg tablet 10 mg PO DAILY #90 tabs 10/31/24 12/08/24 Rx (Jardiance) Held on 12/10/24. Instructions: ON HOLD FOR COLONOSCOPY spironolactone 25 mg tablet 25 mg PO DAILY BP #90 tabs 10/31/24 Unknown Rx sacubitril 49 mg-valsartan 51 mg 0.5 tab PO BID 12/10/24 Unknown History tablet (Entresto) Allergy/AdvReac Type Severity Reaction Status Date / Time amoxicillin (From Augmentin) Allergy Intermediate PT UNSURE Verified 12/10/24 11:48 OF REACTION clavulanic acid (From Allergy Intermediate PT UNSURE Verified 12/10/24 11:48 Augmentin) OF REACTION doxycycline (From Vibramycin) Allergy Intermediate PT UNSURE Verified 12/10/24 11:48 OF REACTION sulfamethoxazole (From Allergy Intermediate PT UNSURE Verified 12/10/24 11:48 Bactrim) OF REACTION trimethoprim (From Bactrim) Allergy Intermediate PT UNSURE Verified 12/10/24 11:48 OF REACTION Penicillins Allergy Hives Verified 12/10/24 11:48 codeine AdvReac Other Verified 12/10/24 11:48 Family History Mother Diabetes Brother Heart disease Hypertension Sister CAD (coronary artery disease) Diabetes Surgical History History of esophagogastroduodenoscopy (~10/17/17) History of nasal surgery History of wisdom tooth extraction History of appendectomy History of bladder suspension procedure History of hysterectomy Social History (Updated 10/30/24 @ 10:08 by Snow Ramos) Smoking Status: Never smoker alcohol intake: never Prior Cardiac Testing/Procedures Prior Cardiac Testing/Procedures: Echocardiogram (Mild LVH, EF 60%) Addt'l Information Additional Findings: < Audit: Pertinent Findings Pertinent Findings EKG Perinent findings: NSR Echo (EF%) pertinent findings: 60%, LVH Current Visit Impressions Current Visit Impressions: Would appreciate if cardiology can provide a cardiac clearance via e-consult. However, it should be fine and this procedure has MODERATE risk of adverse events given her history of cardiomyopathy and history of EF of 35%. However, if not possible, I think patient can proceed. Recommendation Anesthesia Recommendation Anesthesia recommendation: F/U recommended
--- NOTE | 2024-12-10 17:06 | PAT.ANESEVAL ---
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 When Was Last Pacemaker Check QUESTION #4 FULL TEXT: You/Your Family Experience fever (hyperthermia) with Anesthesia Last Oral Intake Last Oral intake: Last Oral Intake NPO since Meds taken in AM with sips of water? Meds patient instructed to take am of surgery PONV PONV - head of digital advertising & integration: PONV - head of digital advertising & integration Female Yes 12/10/24 11:52 HX of Motion Sickness No 12/10/24 11:52 HX of N/V After Surgery No 12/10/24 11:52 Non-Smoker Yes 12/10/24 11:52 Duration of Surgery greater No 12/10/24 11:52 than 60 minutes Number of Risk Factors 2 12/10/24 11:52 PONV Score Moderate Risk 12/10/24 11:52 Height & Weight Height & Weight: Anesthesia: Height & Weight Height 5 ft 2 in 10/30/24 10:09 Respiratory Assessment Respiratory Assessment - head of digital advertising & integration: Respiratory Tract Infection Hx - head of digital advertising & integration Hx Respiratory Tract Infection No 12/10/24 11:52 STOP Sleep Apnea STOP Sleep Apnea - head of digital advertising & integration: STOP Sleep Apnea - head of digital advertising & integration Hx Hypertension Yes: PER PT, CONTROLLED ON 12/10/24 11:52 MEDS Hx Sleep Apnea No 12/10/24 11:52 CPAP BIPAP Do you snore loudly (louder No 12/10/24 11:52 than talking or can be heard Do you often feel tired/ No 12/10/24 11:52 fatigued/ sleepy during daytime? Has anyone observed you stop No 12/10/24 11:52 breathing during sleep? STOP Results Negative 12/10/24 11:52 QUESTION #5 FULL TEXT : Do you snore loudly (louder than talking or can be heard through closed doors)? 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 Specify any problems Hx of Preganancy in last 3 No 12/10/24 11:52 Months Nurse Filling Out Transfusion MGRIFFITH 12/10/24 11:52 & Questions: Date: 12/10/24 12/10/24 11:52 Time: 11:56 12/10/24 11:52 Patient unable to answer at this time (ie. 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 advertising & integration: /Reproductive Hx- head of digital advertising & integration Hx Now Gestational Age (in weeks): EDC: Hx Hx Para Hx Section SAB PFSH Medical History (Updated 12/10/24 @ 12:06 by Miranda Gibbs) Cancer Depression Injury of head and neck Dietary restriction History of hiatal hernia Gastric reflux Shortness of breath on exertion Chronic cough Non-smoker History of echocardiogram History of stress test Cardiology follow-up encounter Chronic dyspnea Pure hypercholesterolemia Moderate mitral regurgitation Mixed hyperlipidemia Diverticulosis of colon Diaphragmatic hernia without mention of obstruction or gangrene Cardiomegaly Atrial fibrillation Dizziness Irregular heart beat Congestive heart failure (CHF) Migraines Hemorrhoids s/p PH probe insertion GERD with esophagitis Dilation of esophagus Uterine prolapse Arthritis Anxiety Irritable bowel syndrome with constipation History of colon polyps Dysphagia Home Medications ?Medication ?Instructions ?Recorded ?Last Taken ?Type esomeprazole magnesium 20 mg 20 mg PO DAILY GERD 07/01/20 07/11/24 History capsule,delayed release (Nexium) Hydrocortisone 2.5%/lidocaine 5% #30 ea 10/30/24 Unknown Rx suppository (cmpd) (hydrocortisone 2.5%/lidocaine 5% suppository (compound)) psyllium husk 3.4 gram/5.4 gram 1 tbsp PO QDAY PRN constipation 10/30/24 Unknown History oral powder (Metamucil) carvedilol 6.25 mg tablet 6.25 mg PO BID heart #180 tabs 10/31/24 Unknown Rx empagliflozin 10 mg tablet 10 mg PO DAILY #90 tabs 10/31/24 12/08/24 Rx (Jardiance) Held on 12/10/24. Instructions: ON HOLD FOR COLONOSCOPY spironolactone 25 mg tablet 25 mg PO DAILY BP #90 tabs 10/31/24 Unknown Rx sacubitril 49 mg-valsartan 51 mg 0.5 tab PO BID 12/10/24 Unknown History tablet (Entresto) Allergy/AdvReac Type Severity Reaction Status Date / Time amoxicillin (From Augmentin) Allergy Intermediate PT UNSURE Verified 12/10/24 11:48 OF REACTION clavulanic acid (From Allergy Intermediate PT UNSURE Verified 12/10/24 11:48 Augmentin) OF REACTION doxycycline (From Vibramycin) Allergy Intermediate PT UNSURE Verified 12/10/24 11:48 OF REACTION sulfamethoxazole (From Allergy Intermediate PT UNSURE Verified 12/10/24 11:48 Bactrim) OF REACTION trimethoprim (From Bactrim) Allergy Intermediate PT UNSURE Verified 12/10/24 11:48 OF REACTION Penicillins Allergy Hives Verified 12/10/24 11:48 codeine AdvReac Other Verified 12/10/24 11:48 Family History Mother Diabetes Brother Heart disease Hypertension Sister CAD (coronary artery disease) Diabetes Surgical History History of esophagogastroduodenoscopy (~10/17/17) History of nasal surgery History of wisdom tooth extraction History of appendectomy History of bladder suspension procedure History of hysterectomy Social History (Updated 10/30/24 @ 10:08 by Snow Ramos) Smoking Status: Never smoker alcohol intake: never Prior Cardiac Testing/Procedures Prior Cardiac Testing/Procedures: Echocardiogram (Mild LVH, EF 60%) Addt'l Information Additional Findings: < Audit: Pertinent Findings HISTORY of Pertinent Findings History of Pertinent Findings: EKG Pertinent Findings EKG Perinent findings NSR 12/10/24 16:09 Echo Pertinent Findings Echo (EF%) pertinent findings 60%, LVH 12/10/24 16:09 Pertinent Findings EKG Perinent findings: NSR Echo (EF%) pertinent findings: 60%, LVH Current Visit Impressions Current Visit Impressions: Would appreciate if cardiology can provide a cardiac clearance via e-consult. However, it should be fine and this procedure has MODERATE risk of adverse events given her history of cardiomyopathy and history of EF of 35%. However, if not possible, I think patient can proceed. Recommendation Anesthesia Recommendation Anesthesia recommendation: OPTIMIZED for anesthesia (Patient is cleared to have anesthetic for her procedure tomorrow pending physical examination and evaluation by anesthesiologist on day of surgery.)
[2024-12-11] VITALS (11 sets, daily range): BP systolic 63–91; BP diastolic 44–62; PULSE 45–87; RESP 16–17; TEMP 36.2–36.4; O2SAT 93–100; BMI 29.0
--- NOTE | 2024-12-11 07:12 | PRE.ANES_ITS ---
ASA Classification* ASA Classification ASA Classification: 3 Assessment & Plan Anesthesia* Anesthesia Assessment Anesthesia Assessment: Discussed sedation and/or anesthesia options, risks, benefits, and alternatives with patient/parents/legal guardian/POA. Questions invited. The patient/parents/legal guardian/POA seems to understand and agrees to proceed with anesthesia plan. Reviewed the physical assessment, medical history, allergy history and patient home medications list prior to surgery/procedure/anesthetic and documented any changes. Performed airway and anesthesia risk assessments. Anesthesia Type Anesthesia Type: MAC Anesthesia Focused Assessment* Airway Assessment Mouth opens: >3 cm Mallampati Score: II Focused Labs Anesthesia Preop lab: CBC WBC 5.0 K/mm3 (4.4-11.0) 07/12/24 06:07 07/12/24 RBC 3.60 M/mm3 (4.2-5.4) L 07/12/24 06:07 07/12/24 Hgb 11.6 g/dL (12.0-15.0) L 07/12/24 06:07 4 Hct 35.5 % (37-47) L 07/12/24 06:07 07/12/24 Plt Count 235 K/mm3 (150-450) 07/12/24 06:07 07/12/24 CHEMISTRY Potassium 4.2 mmol/L (3.5-5.1) 07/12/24 06:07 07/12/24 Sodium 139 mmol/L (136-145) 07/12/24 06:07 07/12/24 Magnesium 2.2 mg/dL (1.6-2.6) 07/12/24 06:07 07/12/24 BUN 18 mg/dL (7-18) 07/12/24 06:07 07/12/24 Creatinine 0.80 mg/dL (0.55-1.02) 07/12/24 06:07 07/12/24 Glucose 99 mg/dL (74-106) 07/12/24 06:07 07/12/24 POC Glucose 125 mg/dL (70-110) H 01/13/21 22:38 01/13/21 TSH 1.310 uIU/mL (0.358-3.740) 07/12/24 06:07 10/1 1/24 COAG Pre-Assessment Diagnosis/Proposed Procedure Planned Operative Procedure(s): COLONOSCOPY Anesthesia History 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 When Was Last Pacemaker Check QUESTION #4 FULL TEXT: You/Your Family Experience fever (hyperthermia) with Anesthesia Last Oral Intake Last Oral intake: Last Oral Intake NPO since Meds taken in AM with sips of water? Meds patient instructed to take am of surgery PONV PONV - electric meter installer helper: PONV - electric meter installer helper Female Yes 12/10/24 11:52 HX of Motion Sickness No 12/10/24 11:52 HX of N/V After Surgery No 12/10/24 11:52 Non-Smoker Yes 12/10/24 11:52 Duration of Surgery greater No 12/10/24 11:52 than 60 minutes Number of Risk Factors 2 12/10/24 11:52 PONV Score Moderate Risk 12/10/24 11:52 Height & Weight Height & Weight: Anesthesia: Height & Weight Height 5 ft 2 in 10/30/24 10:09 Respiratory Assessment Respiratory Assessment - electric meter installer helper: Respiratory Tract Infection Hx - electric meter installer helper Hx Respiratory Tract Infection No 12/10/24 11:52 STOP Sleep Apnea STOP Sleep Apnea - electric meter installer helper: STOP Sleep Apnea - electric meter installer helper Hx Hypertension Yes: PER PT, CONTROLLED ON 12/10/24 11:52 MEDS Hx Sleep Apnea No 12/10/24 11:52 CPAP BIPAP Do you snore loudly (louder No 12/10/24 11:52 than talking or can be heard Do you often feel tired/ No 12/10/24 11:52 fatigued/ sleepy during daytime? Has anyone observed you stop No 12/10/24 11:52 breathing during sleep? STOP Results Negative 12/10/24 11:52 QUESTION #5 FULL TEXT : Do you snore loudly (louder than talking or can be heard through closed doors)? 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 Specify any problems Hx of Preganancy in last 3 No 12/10/24 11:52 Months Nurse Filling Out Transfusion MGRIFFITH 12/10/24 11:52 & Questions: Date: 12/10/24 12/10/24 11:52 Time: 11:56 12/10/24 11:52 Patient unable to answer at this time (ie. confused, unrespo /Reproduction History /Reproductive History - electric meter installer helper: /Reproductive Hx- electric meter installer helper Hx Now Gestational Age (in weeks): EDC: Hx Hx Para [facility] Medical History Cancer Depression Injury of head and neck Dietary restriction History of hiatal hernia Gastric reflux Shortness of breath on exertion Chronic cough Non-smoker History of echocardiogram History of stress test Cardiology follow-up encounter Chronic dyspnea Pure hypercholesterolemia Moderate mitral regurgitation Mixed hyperlipidemia Diverticulosis of colon Diaphragmatic hernia without mention of obstruction or gangrene Cardiomegaly Atrial fibrillation Dizziness Irregular heart beat Congestive heart failure (CHF) Migraines Hemorrhoids s/p PH probe insertion GERD with esophagitis Dilation of esophagus Uterine prolapse Arthritis Anxiety Irritable bowel syndrome with constipation History of colon polyps Dysphagia Home Medications ?Medication ?Instructions ?Recorded ?Last Taken ?Type esomeprazole magnesium 20 mg 20 mg PO DAILY GERD 07/0107/11/24 History capsule,delayed release (Nexium) Hydrocortisone 2.5%/lidocaine 5% #30 ea 10/30/24 Unkno wn Rx suppository (cmpd) (hydrocortisone 2.5%/lidocaine 5% suppository (compound)) psyllium husk 3.4 gram/5.4 gram 1 tbsp PO QDAY PRN con stipation 10/30/24 Unknown History oral powder (Metamucil) carvedilol 6.25 mg tablet 6.25 mg PO BID heart #180 ta bs 10/31/24 Unknown Rx empagliflozin 10 mg tablet 10 mg PO DAILY #90 tabs 12/08/24 Rx (Jardiance) Held on 12/10/24. Instructions: ON HOLD FOR COLONOSCOPY spironolactone 25 mg tablet 25 mg PO DAILY BP #90 tabs 10/31/24 Unknown Rx sacubitril 49 mg-valsartan 51 mg 0.5 tab PO BID Unknown History tablet (Entresto) Allergy/AdvReac Type Severity Reaction Status Date / Time amoxicillin (From Augmentin) Allergy Intermediate PT UNSURE Verified 12/10/24 11:48 OF REACTION clavulanic acid (From Allergy Intermediate PT UNSURE Verified 12/10/24 11:48 Augmentin) OF REACTION doxycycline (From Vibramycin) Allergy Intermediate PT UNSURE Verified 12/10/24 11:48 OF REACTION sulfamethoxazole (From Allergy Intermediate PT UNSURE Verified 12/10/24 11:48 Bactrim) OF REACTION trimethoprim (From Bactrim) Allergy Intermediate PT UNSURE Verified 12/10/24 11:48 OF REACTION Penicillins Allergy Hives Verified 12/10/24 11:48 codeine AdvReac Other Verified 12/10/24 11:48 Family History Mother Diabetes Brother Heart disease Hypertension Sister CAD (coronary artery disease) Diabetes Surgical History History of esophagogastroduodenoscopy (~10/17/17) History of nasal surgery History of wisdom tooth extraction History of appendectomy History of bladder suspension procedure History of hysterectomy Social History Smoking Status: Never smoker alcohol intake: never Review of Systems (Anesthesia) ROS Narrative System reviewed and no additional complaints, except as documented.
--- NOTE | 2024-12-11 07:36 | H&P.OPEN ---
[facility] - General General Date of Service: 12/11/24 HPI Narrative HARPREET SYKES, is a 79 F who presents for colonoscopy due to history of colon polyps. Since office visit patient did go to urgent care and had a UA done which showed some hematuria but otherwise normal per patient. Patient denies noticing any gross blood. Patient noticed only a small amount of blood with her colon prep. Patient states she did have some abdominal discomfort today but improved with nausea medicine. 10/30/2024 office visit [facility] HPI: 79-year-old female presents for colonoscopy. Patient's last colonoscopy was in November 2019 and she was given 5 years for repeat due to tubular adenoma polyp removal. Patient does have a complicated abdominal surgery history including per records hemorrhoidectomy in , 1998 and in 2011 had cystocele and rectocele repair and in 2020 she had abdominoplasty combined with abdominal sacral colpopexy and culdoplasty and bilateral para vaginal defect repairs and left salpingectomy. Patient states that she does have hemorrhoids denies any pain states they do itch she tries [id number] Preparation H. Patient does have constipation which requires some straining denies being on the toilet for prolonged periods does state that she does go daily if not she does try to take something previously she was taking MiraLAX daily but did not stop that currently she is taking Metamucil. Patient is unsure how much fiber she gets daily. Patient has been on Nexium 20 mg p.o. daily and has had a previous EGD a long time ago per patient by Dr. Ngo and did require dilation at that time denies any dysphagia currently. Patient denies any family history of colon cancer. [facility] Medical History Cancer Depression Injury of head and neck Dietary restriction History of hiatal hernia Gastric reflux Shortness of breath on exertion Chronic cough Non-smoker History of echocardiogram History of stress test Cardiology follow-up encounter Chronic dyspnea Pure hypercholesterolemia Moderate mitral regurgitation Mixed hyperlipidemia Diverticulosis of colon Diaphragmatic hernia without mention of obstruction or gangrene Cardiomegaly Atrial fibrillation Dizziness Irregular heart beat Congestive heart failure (CHF) Migraines Hemorrhoids s/p PH probe insertion GERD with esophagitis Dilation of esophagus Uterine prolapse Arthritis Anxiety Irritable bowel syndrome with constipation History of colon polyps Dysphagia Home Medications ?Medication ?Instructions ?Recorded ?Last Taken ?Type esomeprazole magnesium 20 mg 20 mg PO DAILY GERD 07/01/20 12/11/24 History capsule,delayed release (Nexium) Hydrocortisone 2.5%/lidocaine 5% #30 ea 10/30/24 Unknown Rx suppository (cmpd) (hydrocortisone 2.5%/lidocaine 5% suppository (compound)) psyllium husk 3.4 gram/5.4 gram 1 tbsp PO QDAY PRN constipation 10/30/24 12/10/24 History oral powder (Metamucil) carvedilol 6.25 mg tablet 6.25 mg PO BID heart #180 tabs 10/31/24 12/11/24 Rx empagliflozin 10 mg tablet 10 mg PO DAILY #90 tabs 10/31/24 12/08/24 Rx (Jardiance) Held on 12/10/24. Instructions: ON HOLD FOR COLONOSCOPY spironolactone 25 mg tablet 25 mg PO DAILY BP #90 tabs 10/31/24 12/10/24 Rx sacubitril 49 mg-valsartan 51 mg 0.5 tab PO BID 12/10/24 12/11/24 History tablet (Entresto) Allergy/AdvReac Type Severity Reaction Status Date / Time amoxicillin (From Augmentin) Allergy Intermediate PT UNSURE Verified 12/11/24 07:32 OF REACTION clavulanic acid (From Allergy Intermediate PT UNSURE Verified 12/11/24 07:32 Augmentin) OF REACTION doxycycline (From Vibramycin) Allergy Intermediate PT UNSURE Verified 12/11/24 07:32 OF REACTION sulfamethoxazole (From Allergy Intermediate PT UNSURE Verified 12/11/24 07:32 Bactrim) OF REACTION trimethoprim (From Bactrim) Allergy Intermediate PT UNSURE Verified 12/11/24 07:32 OF REACTION Penicillins Allergy Hives Verified 12/11/24 07:32 codeine AdvReac Other Verified 12/11/24 07:32 Family History Mother Diabetes Brother Heart disease Hypertension Sister CAD (coronary artery disease) Diabetes Surgical History History of esophagogastroduodenoscopy (~10/17/17) History of nasal surgery History of wisdom tooth extraction History of appendectomy History of bladder suspension procedure History of hysterectomy Social History Smoking Status: Never smoker alcohol intake: never Past Medical/Surgical History Planned Operation Planned Operative Procedure(s): COLONOSCOPY S.O.S: No Previous Hospitalizations/Surgeries HX Hospitalizations: Yes (08/2024 MIGRAINES, PASSING OUT) HX of Surgeries: APPY, BLADDER, HYSTER, NASAL SURGERY, Any Problems With Anesthesia: No You/Your Family Experience Fever (Hyperthermia) With Anes: No Cholinesterase deficiency: No Cardiovascular Hx Chest Pain within Last 2 months: Yes (DONT KNOW IF ITS CARDIAC PAIN OR ESOPHAGUS PAIN) Hx of Irregular Heartbeat and/or Afib: No Hx Heart Attack: No Hx Congestive Heart Failure: No Hx Rheumatic Fever: No Hx Hypertension: Yes (PER PT, CONTROLLED ON MEDS) Hx Internal Defibrillator: No Hx Pacemaker: No Hx Cardiac Catheterization: No Hx Cardiac Surgery/Stents/Etc.: No Hx Stress Test: Yes ([facility], NOT SURE WHAT YEAR) Hx Pain in Legs when Walking/Leg Cramps: No Respiratory Chronic Cough: Yes HX of Shortness of Breath: No Hoarseness: No Hx Chronic Obstructive Pulmonary Disease (COPD): No Hx Asthma: No Hx Emphysema: No Hx Sleep Apnea: No Hx Respiratory Tract Infection/Cold (presently): No Do You Snore Loudly (louder than talking or can be heard): No Do You Often Feel Tired/ Fatigued/ Sleepy Dring Daytime?: No Has Anyone Observed You Stop Breathing During Sleep?: No Result (for STOP score): Negative Hx Smoking: No Smoking Status: Never smoker Gastrointestinal Controlled With Meds: No Hx Gastrointestinal Disorders: Yes (IBS, THINKS SHE MIGHT HAVE DIVERTICULITS BUT NOT SURE) Hx Gastrointestinal Bleed: No Hx Ulcer: No Hx Hiatal Hernia: Yes Difficulty Chewing/Swallowing: No Special diet followed at home: No Hx Unplanned Weight Loss of 20#: No HX Unplanned Weight Gain of 20#: No Neurological Hx Seizures: No HX Syncope/Blackout Spells/Unconsciousness: No Hx Transient Ischemic Attacks (TIA): No Hx Multiple Sclerosis: No Hx Parkinson's Disease: No Hx Head/Neck Injury: No Hx Headaches: No Hx Back Injury/Pain: No Recent Onset of Speech Difficulty: No Restless Legs: No Does patient have nerve stimulator: No Blood Disorder Hx Leukemia: No Bleeding Tendencies: No Hx Deep Vein Thrombosis: No Hx High Cholesterol: No Blood Transmitted Disease: No Hx Hepatitis: No Hx Cirrhosis: No Hx Anemia: No Hx Blood Disorders: No Genitourinary Hx Renal Disease: Yes (WATCHING A SPOT) Musculoskeletal Hx Arthritis: Yes (KNEE) Hx Rheumatoid Arthritis: No Hx Gout: No Recent Onset of an Orthopedic Problem: No Endocrine Hx Diabetes: No Thyroid Disease: No Hx Steroid Therapy: No Psycho/Social Hx Substance Use: No Hx Alcohol Use: No Hx Anxiety: Yes Hx Depression: Yes Mental Illness: No Hx Dementia: No Miscellaneous Hx Cancer: No Recent Exposure to Contagious Disease: No Allergies amoxicillin (From Augmentin) Allergy (Intermediate, Verified 12/11/24 07:32) PT UNSURE OF REACTION clavulanic acid (From Augmentin) Allergy (Intermediate, Verified 12/11/24 07:32) PT UNSURE OF REACTION doxycycline (From Vibramycin) Allergy (Intermediate, Verified 12/11/24 07:32) PT UNSURE OF REACTION sulfamethoxazole (From Bactrim) Allergy (Intermediate, Verified 12/11/24 07:32) PT UNSURE OF REACTION trimethoprim (From Bactrim) Allergy (Intermediate, Verified 12/11/24 07:32) PT UNSURE OF REACTION Penicillins Allergy (Verified 12/11/24 07:32) Hives codeine Adverse Reaction (Verified 12/11/24 07:32) Other Discharge Is Pt Admitted From a [facility], or a Long Term: No Who Could Help: FAMILY After D/C, Where Do you Plan to Go: Return Home From the [facility] History Number of Risk Factors: 4 Physical Exam Const alert, oriented x3 and no apparent distress HEENT normocephalic and head/scalp atraumatic Resp normal respiratory effort Cardio regular rate GI soft to palpation and non-tender; Negative for non-distended Palpation: Negative for guarding Extremity no clubbing, cyanosis or edema Skin no rashes or lesions noted Neuro CN's II-XII intact bilaterally Psych mental status grossly normal Assessment & Plan Assessment/Plan (1) History of colon polyps: (2) Internal hemorrhoids: Surgery Risks - Colonoscopy I discussed with the patient the risks of the procedure: Yes Risks Include but are not Limited To: Risks include but are not limited to: Bleeding, perforation requiring further surgery, inability to complete colonoscopy requiring barium enema.
--- NOTE | 2024-12-11 07:38 | EKG12_ITS ---
Test Reason : CP Blood Pressure : */* mmHG Vent. Rate : 70 BPM Atrial Rate : 70 BPM P-R Int : 168 ms QRS Dur : 106 ms QT Int : 400 ms P-R-T Axes : 83 -18 98 degrees QTcB Int : 432 ms Normal sinus rhythm ST & T wave abnormality, consider lateral ischemia Abnormal ECG When compared with ECG of 11-Jul-2024 12:49, Nonspecific T wave abnormality no longer evident in Anterior leads Confirmed by ALEJANDRO LAWLER, RAJESH ([id number]), newspaper photo editor MULU WILSON ([id number]) on 12/16/2024 1:46:22 PM Referred By: Latha Truong Confirmed By: RAJESH ALLEN MD
--- NOTE | 2024-12-11 08:30 | COLBX_PTH ---
PATIENT: HARPREET SYKES LOC: EN U#:[id number] AGE/SX: 79/F ROOM: RE12/11/[address]: Dr. Latha Truong MD : 1945 BED: DIS: 12/11/2024 SPEC #: [id number] RECD: 12/11/24 12:12 STATUS: MANDY DL #: [id number] NAYLA: 12/11/24 08:[address]: Latha Truong DEPT: SURGICAL PATHOLOGY RECD BY: Holger Pepe ENTERED: 12/11/24 13:02 SP TYPE: COLON BX OTHR DR: Kasia Primary Care Phys Tissues: A - Transverse colon B - Ascending colon Procedures: Surgery Specimen Level IV HEADER OPERATION: Colonoscopy with polypectomy hot snare, biopsy PRE-OP DIAGNOSIS: History of colon polyps, internal hemorrhoids TISSUE SUBMITTED: A- Transverse colon polyp, B- Ascending colon polyp MICROSCOPIC DIAGNOSIS A. Transverse colon, polyp, biopsy: * Tubular adenoma. B. Ascending colon, polyp, biopsy: * Tubular adenoma. MICROSCOPIC DESCRIPTION Slides are reviewed. GROSS DESCRIPTION A. Received in fixative is one container labeled with the patient's name and designated Transverse colon polyp biopsy. The specimen consists of one irregular fragment of light marquez soft tissue that measures 0.3 x 0.2 x 0.1 cm. The specimen is totally submitted in one cassette. B. Received in fixative is one container labeled with the patient's name and designated Ascending colon polyp. The specimen consists of two irregular fragments of light marquez soft tissue that in aggregate measure 0.9 x 0.5 x 0.1 cm. The specimen is totally submitted in one cassette. / 12/11/2024 CPT:31788a6
--- NOTE | 2024-12-11 09:53 | OP.COLON_ITS ---
Patient Name: Toya Pope Procedure Date: 12/11/2024 9:11 AM Date of : 1945 Age: 79 Procedure: Colonoscopy Indications: Surveillance: Personal history of adenomatous polyps on last colonoscopy 5 years ago Providers: Latha Truong MD Referring MD: Latha Truong MD Medicines: Monitored Anesthesia Care Patient Profile: This is an 79 year old female. Last Colonoscopy: November 2019. Complications: No immediate complications. Procedure: Pre-Anesthesia Assessment: - Prior to the procedure, a History and Physical was performed, and patient medications and allergies were reviewed. The patient's tolerance of previous anesthesia was also reviewed. The risks and benefits of the procedure and the sedation options and risks were discussed with the patient. All questions were answered, and informed consent was obtained. Prior Anticoagulants: The patient has taken no anticoagulant or antiplatelet agents. ASA Grade Assessment: Per anesthesia. After reviewing the risks and benefits, the patient was deemed in satisfactory condition to undergo the procedure. After I obtained informed consent, the scope was passed under direct vision. Throughout the procedure, the patient's blood pressure, pulse, and oxygen saturations were monitored continuously. The Colonoscope was introduced through the anus and advanced to the cecum, identified by the appendiceal orifice, ileocecal valve and palpation. The colonoscopy was performed without difficulty. The patient tolerated the procedure well. The quality of the bowel preparation was good. Scope In: 9:20:49 AM Scope Withdrawal Time 0 hours 11 minutes 56 seconds Scope Out: 9:43:26 AM Total Procedure Duration Time 0 hours 22 minutes 37 seconds Findings: Hemorrhoids were found on perianal exam. Non-bleeding external and internal hemorrhoids were found. The hemorrhoids were Grade I (internal hemorrhoids that do not prolapse). A less than 5 mm polyp was found in the transverse colon. The polyp was sessile. The polyp was removed with a cold biopsy forceps. Resection and retrieval were complete. A 5 mm polyp was found in the ascending colon. The polyp was semi-pedunculated. The polyp was removed with a hot snare. Resection and retrieval were complete. Multiple small-mouthed diverticula were found in the sigmoid colon, descending colon and transverse colon. The exam was otherwise without abnormality. Impression: - Hemorrhoids found on perianal exam. - Non-bleeding external and internal hemorrhoids. - One less than 5 mm polyp in the transverse colon, removed with a cold biopsy forceps. Resected and retrieved. - One 5 mm polyp in the ascending colon, removed with a hot snare. Resected and retrieved. - Diverticulosis in the sigmoid colon, in the descending colon and in the transverse colon. - The examination was otherwise normal. Recommendation: - Discharge patient to home. - Resume previous diet. - Continue present medications. - Await pathology results. - Repeat colonoscopy in 5 years for surveillance based on clinical status at that time. - depending on overall health at time of possible repeat Procedure Code(s): --- Professional --- 37913, PT, Colonoscopy, flexible; with removal of tumor(s), polyp(s), or other lesion(s) by snare technique 39294, 59, Colonoscopy, flexible; with biopsy, single or multiple Diagnosis Code(s): --- Professional --- Z86.010, Personal history of colonic polyps K64.0, First degree hemorrhoids D12.3, Benign neoplasm of transverse colon (hepatic flexure or splenic flexure) D12.2, Benign neoplasm of ascending colon K57.30, Diverticulosis of large intestine without perforation or abscess without bleeding CPT copyright 2021 [employer]. All rights reserved. The codes documented in this report are preliminary and upon outreach nurse review may be revised to meet current compliance requirements. MD Latha Bustos MD 12/11/2024 9:52:56 AM This report has been signed electronically. Number of Addenda: 0 Note Initiated On: 12/11/2024 9:11 AM
--- NOTE | 2024-12-11 09:53 | OP.CCLET_ITS ---
12/11/2024 No Primary Care Physician Re : Colonoscopy procedure for Toya Pope Dear Care Physician This procedure was performed on Wednesday, December 11, 2024. My impressions and recommendations are as follows: Impressions : - Hemorrhoids found on perianal exam. - Non-bleeding external and internal hemorrhoids. - One less than 5 mm polyp in the transverse colon, removed with a cold biopsy forceps. Resected and retrieved. - One 5 mm polyp in the ascending colon, removed with a hot snare. Resected and retrieved. - Diverticulosis in the sigmoid colon, in the descending colon and in the transverse colon. - The examination was otherwise normal. Recommendations : - Discharge patient to home. - Resume previous diet. - Continue present medications. - Await pathology results. - Repeat colonoscopy in 5 years for surveillance based on clinical status at that time. - depending on overall health at time of possible repeat My findings are described in the full procedure note, which is enclosed. If I can be of further assistance, please feel free to contact me at Doctor phone number(s): , Work: . Sincerely, MD Latha Bustos MD 12/11/2024 9:52:56 AM This report has been signed electronically.
--- NOTE | 2024-12-11 09:59 | PCM.POST.ANE ---
Anesthesia: Postop Eval I Current Vital Signs Temperature: 97.6 F Pulse Rate: 76 Blood Pressure: 70/46 Respiratory Rate: 16 Pulse Ox: 94 Oxygen Delivery Method: Room Air Assessment Airway patent: Yes Spontaneous unlabored respirations: Yes Mental status: Awake (but with profuse coughing d/t sinus drainage) nausea: No Vomiting: No Anesthesia Complication: Yes Anesthesia Complication Comment:: hypotension and profuse coughing, fluid bolus discussed with MD Fluid Hydration Crystalloid volume administer (ml): 40 Total IV fluid infused: 40 Progress Note Anesthesia document: Postop Eval 1 completed: Yes
--- NOTE | 2024-12-11 10:51 | PCM.POSTANE2 ---
Anesthesia Postop Eval I Sum Postop Eval Completion status Anesthesia document: Postop Eval 1 completed: Yes Anesthesia Postop Eval I Summary Anesthesia Postop Eval I Summary: Anesthesia Postop Eval I: Assessment Summary Airway patent Yes 12/11/24 10:01 [email or web address] Spontaneous unlabored Yes 12/11/24 10:01 [email or web address] respirations Mental status Awake - but with 12/11/24 10:01 [email or web address] profuse coughing d /t sinus drainage nausea No 12/11/24 10:01 [email or web address] Vomiting No 12/11/24 10:01 [email or web address] Anesthesia Postop Eval I: Fluid Summary Crystalloid volume administer 40 12/11/24 10:01 [email or web address] (ml) Colloids volume administered ( ml) Blood Product volume administered (ml) Total IV fluid infused 40 12/11/24 10:01 [email or web address] Anesthesia Postop Eval I: Summary Notes Anesthesia Complication Yes 12/11/24 10:01 [email or web address] Anesthesia Complication hypotension and 12/11/24 10:01 [email or web address] Comment: profuse coughing, fluid bolus discussed with MD Post-operative progress note Anesthesia: Postop Eval II Evaluation Mental status: Awake Pain Level: 0 nausea: No Vomiting: No
== END 2024-12-11 10:53 | disposition home or self-care (01) ==
LOC: EN 07:08 → AC 07:09
PROVIDERS: Referring Provider Surgery; Visit Provider Surgery
PROC: 0DJD8ZZ Inspection of Lower Intestinal Tract, Via Natural or Artificial Opening Endoscopic (ICD-10-PCS; CPT 45378; principal; 2024-12-11 08:25)
DX: Z12.11 Encounter for screening for malignant neoplasm of colon (principal); I50.9 Heart failure, unspecified; I11.0 Hypertensive heart disease with heart failure; D12.2 Benign neoplasm of ascending colon; Z86.0100 Personal history of colon polyps, unspecified; K57.30 Diverticulosis of large intestine without perforation or abscess without bleeding; R31.9 Hematuria, unspecified; K64.0 First degree hemorrhoids; E78.2 Mixed hyperlipidemia; K21.9 Gastro-esophageal reflux disease without esophagitis; Z79.899 Other long term (current) drug therapy; K64.4 Residual hemorrhoidal skin tags; D12.3 Benign neoplasm of transverse colon; Z79.84 Long term (current) use of oral hypoglycemic drugs
CPT/HCPCS: 45380; 45385; 88305; 93005; A4216; J2405

== ENCOUNTER → 2025-06-19 | Outpatient (CLI) | payer MEDICARE, SELFPAY ==
--- NOTE | 2025-06-19 12:30 | BI_ITS ---
EXAM: SCRN MAMM (CAD)W/ANA BILAT DATE: 06/19/2025 CLINICAL HISTORY: F, Age 79 y/o , SCREENING No family history. TECHNIQUE: Procedure Code: BISMWCADBTOM Modality: MG Procedure: SCRN MAMM (CAD)W/ANA BILAT COMPARISON: Prior exam(s) dated November 05, 2019.. FINDINGS: TISSUE DENSITY: There are scattered areas of fibroglandular density. Bilateral Breast Mammographic Findings: No significant masses, calcifications or other abnormalities are identified. No suspicious masses, areas of developing architectural distortion, or suspicious calcifications. There has been no significant interval change. BI/SCRN MAMM (CAD)W/ANA BILAT IMPRESSION: Stable bilateral screening mammogram. OVERALL FINAL ASSESSMENT BI-RADS 1: NEGATIVE. RECOMMENDATION: Routine annual follow-up in 1 Year Additional Recommendation none A letter with findings and recommendations will be mailed to the patient. Reading Location: [place] [id number]
--- NOTE | 2025-06-19 13:00 | BD_ITS ---
PROCEDURE: DEXA BONE DENSITY STUDY 06/19/2025 REASON FOR EXAM: SCREENING F, age 79 y/o . Postmenopausal. TECHNIQUE: Procedure Code: BDDBD Modality: DX Procedure: DEXA BONE DENSITY STUDY COMPARISON: None FINDINGS: BMD and T-SCORES Lumbar spine: 0.894 g/cm2, T-score -1.4 Left femoral neck: 0.525 g/cm2, T-score -2.9 Left total hip: 0.594 g/cm2, T-score -2.8 Right femoral neck: 0.582 g/cm2, T-score -2.4 Right total hip: 0.630 g/cm2, T-score -2.6 The World Health Organization has defined the following categories based on bone density: Normal bone density: T-score equal to or greater than -1.0 Osteopenia: T-score between -1.0 and -2.5 Osteoporosis: T-score equal to or less than -2.5 FRAX (or Comparable) Fracture Risk Assessment: 10 Year Probability of Fracture: Major Osteoporotic Fracture: 31% Hip Fracture: 11% (Note: FRAX is not to be reported in setting of normal range bone density, osteoporosis on DEXA, known history of osteoporosis, prior osteoporotic hip or vertebral fracture, or for any patient undergoing pharmacological treatment for bone loss.) The National Osteoporosis Foundation (NOF) recommends pharmacological treatment for patients with a FRAX 10-year risk of 3% or higher for a hip fracture, or 20% or higher for a major osteoporotic fracture, to prevent osteoporosis and reduce fracture risk. The patient does meet the pharmacological treatment recommendations for prevention of osteoporosis. BD/Dexa Bone Density Study IMPRESSION: OSTEOPOROSIS. Recommend follow-up as clinically warranted. Reading Location: [id number]
== END | disposition home or self-care (01) ==
LOC: OPBD 12:17
PROVIDERS: PCP Internal Medicine; Referring Provider Internal Medicine; Visit Provider Internal Medicine
DX: Z12.31 Encounter for screening mammogram for malignant neoplasm of breast (principal); Z78.0 Asymptomatic menopausal state
CPT/HCPCS: 77063; 77067; 77080

== ENCOUNTER → 2025-06-24 | Outpatient (CLI) | payer MEDICARE, SELFPAY ==
[2025-06-24 13:02] LABS: Hematocrit 34.6 % (37-47); Hemoglobin 11.9 g/dL (12.0-15.0); Immature Granulocytes Count 0.020 X10^3/uL (0.0-0.0); Mean Corp Hgb Conc 34.4 g/dL (32-36); Mean Corpuscular Volume 96.1 fL (81-99); Mean Platelet Vol. 9.4 fl (6.2-12.0); NRBC Flagged by Analyzer 0 % (0-5); Platelet Count 261 K/mm3 (150-450); RBC Distribution Width CV 12.8 % (11.6-14.6); RBC Distribution Width SD 45.3 fl (35.1-43.9); Red Blood Count 3.60 M/mm3 (4.2-5.4); White Blood Count 6.5 K/mm3 (4.4-11.0)
[2025-06-24 14:10] LABS: AST(SGOT) 14 U/L (<=31); Alanine Aminotransfer ALT/SGPT 10 U/L (<=34); Albumin, Serum 4.1 g/dL (3.4-4.8); Alkaline Phosphatase 68 U/L (35-104); Anion Gap 12 (5-15); BUN 24 mg/dL (4-19); BUN/Creat Ratio 25.1 RATIO (10-20); Calcium,Total 10.2 mg/dL (7.6-11.0); Carbon Dioxide 21.4 mmol/L (21.0-32.0); Chloride 104 mmol/L (98-108); Cholesterol 211 mg/dL (<=200); Globulin 2.4 g/dL (2.2-4.2); Glucose 90 mg/dL (70-99); Low Density Lipoprotein Calc. 125 mg/dL; Potassium 4.3 mmol/L (3.3-5.1); Triglycerides 81 mg/dL; Very Low Density Lipoprotein 16 mg/dL (5-40); cholesterol:hdl ratio screen 3.04
[2025-06-24 14:11] LABS: Vitamin D,25 Hydroxy 32.0 ng/mL (30-100)
== END | disposition home or self-care (01) ==
LOC: LAB 12:18
PROVIDERS: PCP Internal Medicine; Referring Provider Internal Medicine; Visit Provider Internal Medicine
DX: Z13.6 Encounter for screening for cardiovascular disorders (principal); I48.91 Unspecified atrial fibrillation; I42.9 Cardiomyopathy, unspecified; E55.9 Vitamin D deficiency, unspecified; K21.00 Gastro-esophageal reflux disease with esophagitis, without bleeding
CPT/HCPCS: 36415; 80053; 80061; 82306; 85025

== ENCOUNTER → 2025-08-26 | Outpatient (CLI) | payer MEDICARE, SELFPAY ==
--- NOTE | 2025-08-26 12:39 | ECHOCS_ITS ---
Reason For Study Reason For Study: MR Procedure This was a 2D Doppler, Color Flow transthoracic echocardiogram. Myocardial strain analysis was performed in this exam to aid in the assessment of cardiac function. Contrast injection was performed. Exam performed in department. Left Ventricle Normal LV size. The left ventricular ejection fraction is 50 %. No regional wall motion abnormalities noted. Right Ventricle Normal RV size. Normal systolic function. Atria The left atrium is mildly enlarged. Normal right atrium. Mitral Valve Normal mitral valve. Mild-Moderate (1-2+) eccentric mitral valve insufficiency. Tricuspid Valve Normal tricuspid valve. Mild (1+) tricuspid valve insufficiency. Pulmonary artery systolic pressure is 25 mmHg. Aortic Valve Trisinus/trileaflet aortic valve. Mild (1+) aortic valve insufficiency. Pulmonic Valve Normal pulmonic valve. Great Vessels Normal aortic root. The pulmonary artery is normal size. Inferior vena cava collapse with respiration. Pericardium/Pleural No pericardial effusion. Medication Diluted definity 2.5ml given slow IV push to enhance endocardial definition. MMode/2D Measurements & Calculations LVIDd: 5.4 cm IVSd: 1.1 cm Ao root diam: 3.2 cm LVIDs: 4.4 cm LVPWd: 1.2 cm RVDd: 3.7 cm FS: 19.0 % LAV(MOD-bp): 78.5 ml EDV(MOD-sp4): 143.1 ml EDV(MOD-sp2): 155.5 ml LAV(MOD-bp) Indexed: 45.1 ml/m2 ESV(MOD-sp4): 78.4 ml ESV(MOD-sp2): 83.9 ml LAV(MOD-sp2): 79.3 ml EF(MOD-sp4): 45.2 % EF(MOD-sp2): 46.0 % LAV(MOD-sp4): 77.4 ml SV(MOD-sp4): 64.7 ml SV(MOD-sp2): 71.6 ml LA A4 area: 23.3 cm2 SI(MOD-sp4): 37.2 ml/m2 SI(MOD-sp2): 41.2 ml/m2 LA dimension(2D): 4.5 cm RA A4 area: 14.1 cm2 TAPSE: 1.7 cm Time Measurements MV dec time: 0.19 sec Doppler Measurements & Calculations MV E max julian: 90.5 cm/sec Lat Peak E' Julian: 7.0 cm/sec Med Peak E' Julian: 6.8 cm/sec MV A max julian: 74.4 cm/sec E/E' lat: 13.0 E/E' med: 13.2 MV E/A: 1.2 Ao V2 max: 124.5 cm/sec LV V1 max: 88.2 cm/sec MV dec slope: 505.0 cm/sec2 Ao max P.2 mmHg LV V1 max P.1 mmHg Ao V2 mean: 89.0 cm/sec LV V1 mean P.8 mmHg Ao mean P.5 mmHg LV V1 mean: 65.9 cm/sec Ao V2 VTI: 27.4 cm LV V1 VTI: 19.8 cm AV (velocity ratio): 0.72 PA V2 max: 91.0 cm/sec TR max julian: 235.5 cm/sec TR max P.2 mmHg ECHO/Echo Complete W/ Contrast Interpretation Summary Normal LV size. The left ventricular ejection fraction is 50 %. The left atrium is mildly enlarged. Mild-Moderate (1-2+) eccentric mitral valve insufficiency. The global longitudinal strain is moderately abnormal. The global longitudinal strain = -13.7% (abnormal). Contrast injection was performed. Ordering Physician: Graeme Means Referring Physician: Hiral Alberto Performed By: Sunitha London, MARISOL, RVT
--- NOTE | 2025-08-26 12:45 | RAD_ITS ---
EXAM: XR Cervical Spine Flexion/Extension Only, 2 or 3 Views CLINICAL INDICATION: NUMBNESS AND TINGLING OF RIGHT HAND TECHNIQUE: Lateral flexion/extension views of the cervical spine. COMPARISON: No relevant prior studies available. FINDINGS: VERTEBRAE: Degenerative facet arthropathy throughout the cervical spine. Normal alignment. No acute fracture. DISC SPACES: Degenerative disc disease throughout the cervical spine. SOFT TISSUES: Unremarkable. RAD/Cerv Spine 2 or 3 Views IMPRESSION: 1. No acute fracture. 2. Degenerative changes of the cervical spine as described. Reading Location: [id number]
== END | disposition home or self-care (01) ==
PROVIDERS: PCP Internal Medicine; Referring Provider Student in an Organized Health Care Education/Training Program; Visit Provider Student in an Organized Health Care Education/Training Program
DX: I34.0 Nonrheumatic mitral (valve) insufficiency (principal); R20.0 Anesthesia of skin; R20.2 Paresthesia of skin
CPT/HCPCS: 72040; 93306; Q9957; A4216; C8929